=== PATIENT | female | born 1935 | race Caucasian/White ===

== ENCOUNTER 2019-08-29 07:51 | Inpatient (IN) | payer MEDICARE, MEDICAID ==
[~2019-08-29] VITALS: Ht 147.5 cm; Wt 98.3 kg
--- NOTE | 2019-08-29 08:38 | Diagnostic Imaging Report ---
INDICATION: Shortness of breath Frontal chest obtained at 0801 a.m. There is prominent cardiomegaly with prosthetic valve. Single-lead pacemaker is in place. There is central vascular congestion with some right perihilar infiltrate. There is no pneumothorax or pleural fluid. IMPRESSION: Cardiomegaly and central vascular congestion with some right perihilar infiltrate. Prosthetic valve noted. Dictated by: Dictated on workstation # [id number]
--- NOTE | 2019-08-29 08:42 | ED General ---
General Chief Complaint: Respiratory Problems Stated Complaint: SOB Nursing Triage Note: Patient [facility] with c/o shortness of breath and chest fullness. States that the shortness of breath has been increasing for the past couple of days. She recently had a pacemaker and valve replacement done on the . Nursing Sepsis Screen: No Definite Risk Source of Information: Patient, Caregiver Exam Limitations: No Limitations History of Present Illness Date Seen by Provider: Aug 29, 2019 Time Seen by Provider: 08:05 Initial Comments Here with report of cough and shortness of breath that has been increasing over the past several days has had cough for the last 2 weeks. She does complain of fullness of the chest. Had a pacemaker placed about 3 weeks ago. Also had heart valve replaced. Has had history of CHF. Denies fevers but does feel tired. Had diarrhea but that is resolved. Denies dysuria but is not urinating much. Timing/Duration: Getting Worse, Other (2 weeks) Severity: Moderate Associated Systoms: No Chest Pain; Cough; No Diaphoresis, No Fever/Chills, No Nausea/Vomiting; Shortness of Air, Weakness Allergies and Home Medications Allergies Coded Allergies: Sulfa (Sulfonamide Antibiotics) (Verified Allergy, Unknown, 08/29/19) capsaicin (Verified Allergy, Unknown, 08/29/19) ciprofloxacin (Verified Allergy, Unknown, 08/29/19) codeine (Verified Allergy, Unknown, 08/29/19) simvastatin (Verified Allergy, Unknown, 08/29/19) Home Medications Acetaminophen 325 Mg Tablet, 650 MG PO Q4H PRN for PAIN-MILD (1-4), (Reported) Apixaban 5 Mg Tablet, 5 MG PO BID, (Reported) Aspirin 81 Mg Tablet.dr, 81 MG PO DAILY, (Reported) Furosemide 20 Mg Tablet, 20 MG PO BID, (Reported) Hydrocodone Bitartrate 10 Mg Cap.er.12h, 10 MG PO Q12H, (Reported) Hydrocodone/Acetaminophen 1 Each Tablet, 1 TAB PO BID PRN for PAIN-MODERATE (5- 7), (Reported) Latanoprost 2.5 Ml Drops, 1 DROP OU HS, (Reported) Lisinopril 2.5 Mg Tablet, 2.5 MG PO DAILY, (Reported) Metformin HCl 500 Mg Tablet, 500 MG PO BID, (Reported) Omeprazole 40 Mg Capsule.dr, 40 MG PO DAILY, (Reported) Potassium Chloride 10 Meq Tablet.er, 10 MEQ PO BID, (Reported) Pravastatin Sodium 10 Mg Tablet, 10 MG PO DAILY, (Reported) Sennosides/Docusate Sodium 1 Each Tablet, 1 TAB PO BID, (Reported) Sertraline HCl 50 Mg Tablet, 50 MG PO DAILY, (Reported) Patient Home Medication List Home Medication List Reviewed: Yes Review of Systems Review of Systems Constitutional: see HPI EENTM: nose congestion; No throat pain Respiratory: cough, short of breath Cardiovascular: no symptoms reported Gastrointestinal: No abdominal pain, No nausea, No vomiting Musculoskeletal: no symptoms reported Skin: no symptoms reported Psychiatric/Neurological: No Symptoms Reported All Other Systems Reviewed Negative Unless Noted: Yes Past Kxpqytc-Dyhlkw-Eeoqvp Hx Past Med/Social Hx: Reviewed Nursing Past Med/Soc Hx Patient Social History Alcohol Use: Denies Use Recreational Drug Use: No Smoking Status: Never a Smoker 2nd Hand Smoke Exposure: No Recent Foreign Travel: No Contact w/Someone Who Travel: No Recent Infectious Disease Expo: No Recent Hopitalizations: Yes (PACEMAKER PLACED 08/09/19) Physical Abuse: No Sexual Abuse: No Mistreated: No Fear: No Seasonal Allergies Seasonal Allergies: No Past Medical History Surgeries: Yes Pacemaker, Valve Replacement Respiratory: No Cardiac: Yes (CHF) Atrial Fibrillation, High Cholesterol, Hypertension, Valvular Heart Disease Neurological: No Genitourinary: No Gastrointestinal: Yes Gastroesophageal Reflux Endocrine: Yes Diabetes, Non-Insulin dep HEENT: No Cancer: No Psychosocial: No Integumentary: No Blood Disorders: No Family Medical History Reviewed Nursing Family Hx No Pertinent Family Hx Physical Exam-Suspected Sepsis Physical Exam Vital Signs Vital Signs - First Documented 08/29/19 08/29/19 08:00 08:56 Temp 36.7 Pulse 82 Resp 16 B/P (MAP) 130/65 (86) Pulse Ox 95 O2 Delivery Room Air O2 Flow Rate 2.00 FiO2 95 Capillary Refill : Less Than 3 Seconds Blood Pressure Mean: 86 POS Height, Weight, BMI Height: '" Weight: lbs. oz. kg; 43.00 BMI Method: General Appearance: WD/WN, Mild Distress, Obese HEENT: PERRL/EOMI, Pharynx Normal Neck: Non Tender, Supple Respiratory: No Accessory Muscle Use, No Respiratory Distress, Crackles (right greater than left), Decreased Breath Sounds Cardiovascular: Regular Rate, Rhythm, No Murmur Gastrointestinal: Non Tender, Soft Back: Normal Inspection, No CVA Tenderness, No Vertebral Tenderness Extremity: Normal Range of Motion, Pedal Edema (1-2+ bilateral to above the knees.) Neurologic/Psychiatric: Alert, Oriented x3 Skin: normal color, warm/dry Focused Exam Lactate Level 08/29/19 08:45: Lactic Acid Level 1.56 Lactic Acid Level Progress/Results/Core Measures Suspected Sepsis Recent Fever Within 48 Hours: No Infection Criteria Present: Suspected New Infection New/Unexplained Altered Menta: No Sepsis Screen: No Definite Risk SIRS Temperature: Pulse: 82 Respiratory Rate: 16 Laboratory Tests 08/29/19 08:45: White Blood Count 8.8 Blood Pressure 130 /65 Mean: 86 08/29/19 08:45: Lactic Acid Level 1.56 Laboratory Tests 08/29/19 08:45: Creatinine 0.62, INR Comment 1.2, Platelet Count 179, Total Bilirubin 0.6 Results/Orders Lab Results Laboratory Tests Test 08/29/19 08:45 08/29/19 09:45 Range/Units White Blood Count 8.8 4.3-11.0 10^3/uL Red Blood Count 3.95 L 4.35-5.85 10^6/uL Hemoglobin 11.3 L 11.5-16.0 G/DL Hematocrit 36 35-52 % Mean Corpuscular Volume 91 80-99 FL Mean Corpuscular Hemoglobin 29 25-34 PG Mean Corpuscular Hemoglobin Concent 32 32-36 G/DL Red Cell Distribution Width 14.9 H 10.0-14.5 % Platelet Count 179 130-400 10^3/uL Mean Platelet Volume 12.4 H 7.4-10.4 FL Neutrophils (%) (Auto) 70 42-75 % Lymphocytes (%) (Auto) 23 12-44 % Monocytes (%) (Auto) 5 0-12 % Eosinophils (%) (Auto) 1 0-10 % Basophils (%) (Auto) 1 0-10 % Neutrophils # (Auto) 6.1 1.8-7.8 X 10^3 Lymphocytes # (Auto) 2.0 1.0-4.0 X 10^3 Monocytes # (Auto) 0.5 0.0-1.0 X 10^3 Eosinophils # (Auto) 0.1 0.0-0.3 10^3/uL Basophils # (Auto) 0.1 0.0-0.1 10^3/uL Prothrombin Time 15.6 H 12.2-14.7 SEC INR Comment 1.2 0.8-1.4 Activated Partial Thromboplast Time 28 24-35 SEC Sodium Level 140 135-145 MMOL/L Potassium Level 5.2 H 3.6-5.0 MMOL/L Chloride Level 101 98-107 MMOL/L Carbon Dioxide Level 28 21-32 MMOL/L Anion Gap 11 5-14 MMOL/L Blood Urea Nitrogen 14 7-18 MG/DL Creatinine 0.62 0.60-1.30 MG/DL Estimat Glomerular Filtration Rate > 60 BUN/Creatinine Ratio 23 Glucose Level 91 70-105 MG/DL Lactic Acid Level 1.56 0.50-2.00 MMOL/L Calcium Level 9.2 8.5-10.1 MG/DL Corrected Calcium 9.7 8.5-10.1 MG/DL Total Bilirubin 0.6 0.1-1.0 MG/DL Aspartate Amino Transf (AST/SGOT) 23 5-34 U/L Alanine Aminotransferase (ALT/SGPT) 7 0-55 U/L Alkaline Phosphatase 105 40-136 U/L Pro-B-Type Natriuretic Peptide 1568.0 H <75.0 PG/ML Total Protein 6.9 6.4-8.2 GM/DL Albumin 3.4 3.2-4.5 GM/DL Urine Color DARK YELLOW Urine Clarity CLOUDY Urine pH 7.0 5-9 Urine Specific Kirby 1.015 L 1.016-1.022 Urine Protein NEGATIVE NEGATIVE Urine Glucose (UA) NEGATIVE NEGATIVE Urine Ketones NEGATIVE NEGATIVE Urine Nitrite NEGATIVE NEGATIVE Urine Bilirubin NEGATIVE NEGATIVE Urine Urobilinogen 0.2 < = 1.0 MG/DL Urine Leukocyte Esterase TRACE H NEGATIVE Urine RBC (Auto) NEGATIVE NEGATIVE Urine RBC 0-2 /HPF Urine WBC 5-10 H /HPF Urine Squamous Epithelial Cells 5-10 /HPF Urine Crystals NONE /LPF Urine Bacteria LARGE H /HPF Urine Casts NONE /LPF Urine Mucus NEGATIVE /LPF Urine Culture Indicated CULTURE PENDING My Orders Orders - KIKO GARCIA MD Cbc With Automated Diff (08/29/19 08:09) Comprehensive Metabolic Panel (08/29/19 08:09) Blood Culture (08/29/19 08:09) Sputum Culture (08/29/19 08:09) Urinalysis (08/29/19 08:09) Urine Culture (08/29/19 08:09) Protime With Inr (08/29/19 08:09) Partial Thromboplastin Time (08/29/19 08:09) Chest 1 View Ap/Pa Only (08/29/19 08:09) Ed Iv/Invasive Line Start (08/29/19 08:09) Ekg Tracing (08/29/19 08:09) Vital Signs Adult Sepsis Patie Q15M (08/29/19 08:09) O2 (08/29/19 08:09) Remove Rings In Anticipation O (08/29/19 08:09) Lactic Acid Analyzer (08/29/19 08:09) Probnp Fs (08/29/19 08:09) Rutledge Cath (08/29/19 09:52) Furosemide Injection (Lasix Injection) (08/29/19 10:00) Acetaminophen Tablet (Tylenol Tablet) (08/29/19 10:30) Piperacillin Sodium/Tazobactam (Zosyn Vi (08/29/19 10:45) Medications Given in ED Current Medications Medications Dose Ordered Sig/Kathy Route Start Time Stop Time Status Last Admin Dose Admin Acetaminophen 1,000 mg ONCE ONCE PO 08/29/19 10:30 08/29/19 10:31 DC 08/29/19 10:23 1,000 MG Piperacillin Sod/ Tazobactam Sod 4.5 gm/Sodium Chloride 100 ml @ 200 mls/hr ONCE ONCE IV 08/29/19 10:45 08/29/19 11:14 DC 08/29/19 11:22 200 MLS/HR Vital Signs/I&O 08/29/19 08/29/19 08/29/19 08/29/19 08:00 08:56 11:42 12:30 Temp 36.7 36.7 Pulse 82 80 86 Resp 16 16 22 B/P (MAP) 130/65 (86) 112/45 (86) 120/75 (90) Pulse Ox 95 95 94 O2 Delivery Room Air Nasal Cannula O2 Flow Rate 2.00 2.00 2.00 FiO2 95 08/29/19 08/29/19 08/29/19 08/29/19 12:30 12:31 13:57 15:32 Temp 36.7 Pulse 86 82 Pulse Ox 95 97 O2 Delivery Nasal Cannula Nasal Cannula O2 Flow Rate 2.00 2.00 FiO2 28 08/29/19 08/29/19 08/29/19 15:46 16:03 17:13 Temp 36.7 Pulse 80 Pulse Ox 94 O2 Delivery Nasal Cannula O2 Flow Rate 2.00 Capillary Refill : Less Than 3 Seconds Blood Pressure Mean: 86 POS Progress Note : Progress Note Seen and evaluated. IV, labs, EKG and chest x-ray ordered. Blood cultures and lactic acid ordered. Patient is difficult IV stick but we are able to finally get 24-gauge IV. Monitor patient. 1020: Findings of heart failure noted. Patient did have Rutledge catheter placed and UA has resulted. That is also positive for urinary tract infection. There is question of right perihilar infiltrate. I did discuss the findings with Dr. Vo, on-call for [facility]. She recommends initiation of Zosyn due to the recent hospitalization as well as intermediate patient. Zosyn 4.5 g IV ordered. She has asked for consult with cardiology and pulmonology. 1025: I did discuss case with Dr. Simon. He accepts patient in consult and agrees with Lasix 40 mg IV now and twice a day. 1033: I did discuss the case with Dr. Back. He accepts patient in consult. Patient to be admitted to cardiac step down. ECG Initial ECG Impression Date: Aug 29, 2019 Initial ECG Impression Time: 08:07 Initial ECG Rate: 81 Comment Ventricular paced rhythm with left axis deviation. No evidence of ST elevation [place]. No previous available for comparison. Interpreted by me. Diagnostic Imaging Diagonstic Imaging: Xray Plain Films/CT/US/NM/MRI: chest Comments [facility]. POS [place], [place] POS NAME: RITADIDI MED REC#: [id number] PT STATUS: REG ER : 1935 PHYSICIAN: KIKO GARCIA MD ADMIT DATE: 08/29/19/ER FS Draft POSDate of Exam:08/29/19 CHEST 1 VIEW AP/PA ONLY INDICATION: Shortness of breath Frontal chest obtained at 0801 a.m. There is prominent cardiomegaly with prosthetic valve. Single-lead pacemaker is in place. There is central vascular congestion with some right perihilar infiltrate. There is no pneumothorax or pleural fluid. IMPRESSION: Cardiomegaly and central vascular congestion with some right perihilar infiltrate. Prosthetic valve noted. Dictated on workstation # [id number] Dict: 08/29/1932 Trans: 08/29/19 0838 COUNT INCLUDES THE [facility] [id number] Interpreted by: JEAN PIERRE GODOY MD Electronically signed by: Departure Communication (Admissions) Time/Spoke to Admitting Phy: 10:20 Time/Spoke to Consulting Phy: 10:25 Impression Primary Impression: Acute heart failure Qualified Codes: I50.9 - Heart failure, unspecified Additional Impressions: Urinary tract infection Qualified Codes: N30.00 - Acute cystitis without hematuria Pneumonia involving right lung Qualified Codes: J18.9 - Pneumonia, unspecified organism Disposition: ADMITTED INPATIENT Condition: Stable Admissions Decision to Admit Reason: Admit from ER (General) Decision to Admit/Date: Aug 29, 2019 Time/Decision to Admit Time: 10:20 KIKO GARCIA MD Aug 29, 2019 08:42 POS
[2019-08-29 09:41] LABS: INR 1.2 (0.8-1.4); PROTHROMBIN TIME PATIENT 15.6 SEC (12.2-14.7)
[2019-08-29 09:42] LABS: BASOPHILS % (AUTO) 1 % (0-10); EOSINOPHILS % (AUTO) 1 % (0-10); HEMATOCRIT 36 % (35-52); HEMOGLOBIN 11.3 G/DL (11.5-16.0); LYMPHOCYTES % (AUTO) 23 % (12-44); MEAN CORPUSCULAR HEMOGLOBIN 29 PG (25-34); MEAN CORPUSCULAR HGB CONC 32 G/DL (32-36); MEAN CORPUSCULAR VOLUME 91 FL (80-99); MEAN PLATELET VOLUME 12.4 FL (7.4-10.4); MONOCYTES % (AUTO) 5 % (0-12); NEUTROPHILS % (AUTO) 70 % (42-75); PLATELET COUNT 179 10^3/uL (130-400); RED CELL DISTRIBUTION WIDTH 14.9 % (10.0-14.5); WHITE BLOOD COUNT 8.8 10^3/uL (4.3-11.0)
[2019-08-29 09:43] LABS: BASOPHILS # (AUTO) 0.1 10^3/uL (0.0-0.1); EOSINOPHILS # (AUTO) 0.1 10^3/uL (0.0-0.3); MONOCYTES # (AUTO) 0.5 X 10^3 (0.0-1.0); NEUTROPHILS # (AUTO) 6.1 X 10^3 (1.8-7.8)
[2019-08-29 09:49] LABS: CARBON DIOXIDE 28 MMOL/L (21-32); CHLORIDE 101 MMOL/L (98-107); POTASSIUM 5.2 MMOL/L (3.6-5.0); SODIUM 140 MMOL/L (135-145)
[2019-08-29 09:50] LABS: ALANINE AMINOTRANSFERASE 7 U/L (0-55); ALBUMIN 3.4 GM/DL (3.2-4.5); ALKALINE PHOSPHATASE 105 U/L (40-136); BILIRUBIN,TOTAL 0.6 MG/DL (0.1-1.0); BUN/CREATININE RATIO 23; CALCIUM 9.2 MG/DL (8.5-10.1); CREATININE SERUM 0.62 MG/DL (0.60-1.30); GFR ESTIMATED > 60; GLUCOSE 91 MG/DL (70-105); TOTAL PROTEIN 6.9 GM/DL (6.4-8.2)
[2019-08-29] MEDS ORDERED: FUROSEMIDE 40 MG/4 ML INJ (LASIX) IV STA (10:00)
[2019-08-29 10:12] LABS: CLARITY,URINE CLOUDY; COLOR,URINE DARK YELLOW; GLUCOSE, URINE (UA) NEGATIVE (NEGATIVE); PROTEIN,URINE NEGATIVE (NEGATIVE)
[2019-08-29 10:13] LABS: BACTERIA,URINE LARGE /HPF; BILIRUBIN,URINE NEGATIVE (NEGATIVE); KETONES,URINE NEGATIVE (NEGATIVE); LEUKOCYTE ESTERASE ,URINE TRACE (NEGATIVE); NITRITE,URINE NEGATIVE (NEGATIVE); RBC,URINE 0-2 /HPF
[2019-08-29] MEDS ORDERED: ACETAMINOPHEN 500 MG TAB (TYLENOL) PO ONE (10:30)
[2019-08-29] MEDS ORDERED: PIPERACILLIN SODIUM/TAZOBACTAM 4.5 GM in NS (IVPB) 100 ML IV ONE (10:45)
[2019-08-29] MEDS ORDERED: PIPERACILLIN/TAZO 4.5 GM VIAL (ZOSYN) IV ONE (11:07)
[2019-08-29] MEDS ORDERED: NS (IVPB) 100 ML ONE (11:08)
[2019-08-29 12:30] VITALS: BP 120/75
--- NOTE | 2019-08-29 12:30 | NUR ---
PT ARRIVED VIA EMS COT AND TRANSFERRED TO HOSPITAL BED. BSC APPLIED. PT DENIES COMPLAINTS. PT ABLE TO ANSWER ALL QUESTIONS APPROPRIATELY. BED IN LOW POSITION AND CALL LIGHT WITHIN REACH.
[2019-08-29] MEDS ORDERED: CATHETER FLUSH 10 ML SYR IV PRN (12:45)
[2019-08-29] MEDS ORDERED: FLU QUADRIvalent (5+ YOA) 2019-2020 (AFLURIA) 0.5 ML IM ONE (13:15)
--- NOTE | 2019-08-29 13:17 | Diagnostic Imaging Report ---
INDICATION: CHF. EXAMINATION: Frontal chest obtained at 01:08 p.m. and compared to same day at 08:01 a.m. FINDINGS: There is cardiomegaly. No change in prosthetic valve or pacemaker device. There is central vascular congestion. There appears to be some infiltrate in the right perihilar region. There is no pneumothorax or pleural fluid. IMPRESSION: Cardiomegaly with central vascular congestion with some infiltrate in right perihilar region. No pneumothorax or pleural fluid. No significant change compared to earlier today. Dictated by: Dictated on workstation # [id number]
[2019-08-29 13:57] VITALS: BP 130/65
--- NOTE | 2019-08-29 14:21 | Consultation-Cardiology ---
HPI-Cardiology Cardiology Consultation: Date of Consultation 08/29/19 Time Seen by a Provider: 13:45 Date of Admission 08-29-19 Attending Physician Allison Gallardo DO Admitting Physician Carlos Smith MD Consulting Physician Danielle Simon MD HPI: Chief Complaint: Dyspnea Ms. Salinas is an 83 year old female admitted to ICU 12 from [facility] ED. She currently resides at [facility]. She states she underwent pacemaker placement and aortic valve replacement on Aug 09, [address] Fitzgerald at [facility]. She reports she was discharge to [facility] at [facility] and has had increasing SOB, lose cough and tightness in her chest. She denies any c/o fever. She reports she has had chills. She reports chronic bilat LE swelling which has been worse. She currently denies any chest pain. She feels her breathing is better, but still has a lose non-productive cough. She reports nausea. She denies any vomiting or diarrhea. Review of Systems-Cardiology Review of Systems Constitutional: chills; No fever; malaise Eyes: No vision change Ears/Nose/Throat: No epistaxis, No recent hearing loss Respiratory: As described under HPI Cardiovascular: As described under HPI Gastrointestinal: No constipation, No diarrhea; nausea; No vomiting Genitourinary: No dysuria, No hematuria Musculoskeletal: no symptoms reported Skin: No rash on exposed areas, No ulcerations on exposed areas Psychiatric/Neurological: No anxiety, No depression, No seizure, No focal weakness, No syncope Hematologic: No bleeding abnormalities All Other Systems Reviewed Negative Unless Noted: Yes TNO-Qmbpxp-Cqmsov Hx Patient Social History Alcohol Use: Denies Use Recreational Drug Use: No Smoking Status: Never a Smoker 2nd Hand Smoke Exposure: No Recent Foreign Travel: No Recent Infectious Disease Expo: No Immunizations Up To Date Date of Pneumonia Vaccine: Aug 29, 2016 Past Medical History PMH As described under Assessment. Family Medical History Family Medical History: She reports her father passed with CHF. She states her mother had a CVA. Allergies and Home Medications Allergies Coded Allergies: Sulfa (Sulfonamide Antibiotics) (Verified Allergy, Unknown, 08/29/19) capsaicin (Verified Allergy, Unknown, 08/29/19) ciprofloxacin (Verified Allergy, Unknown, 08/29/19) codeine (Verified Allergy, Unknown, 08/29/19) simvastatin (Verified Allergy, Unknown, 08/29/19) Home Medications Acetaminophen 325 Mg Tablet, 650 MG PO Q4H PRN for PAIN-MILD (1-4), (Reported) Apixaban 5 Mg Tablet, 5 MG PO BID, (Reported) Aspirin 81 Mg Tablet.dr, 81 MG PO DAILY, (Reported) Furosemide 20 Mg Tablet, 20 MG PO BID, (Reported) Hydrocodone Bitartrate 10 Mg Cap.er.12h, 10 MG PO Q12H, (Reported) Hydrocodone/Acetaminophen 1 Each Tablet, 1 TAB PO BID PRN for PAIN-MODERATE (5- 7), (Reported) Latanoprost 2.5 Ml Drops, 1 DROP OU HS, (Reported) Lisinopril 2.5 Mg Tablet, 2.5 MG PO DAILY, (Reported) Metformin HCl 500 Mg Tablet, 500 MG PO BID, (Reported) Omeprazole 40 Mg Capsule.dr, 40 MG PO DAILY, (Reported) Potassium Chloride 10 Meq Tablet.er, 10 MEQ PO BID, (Reported) Pravastatin Sodium 10 Mg Tablet, 10 MG PO DAILY, (Reported) Sennosides/Docusate Sodium 1 Each Tablet, 1 TAB PO BID, (Reported) Sertraline HCl 50 Mg Tablet, 50 MG PO DAILY, (Reported) Physical Exam-Cardiology Physical Exam Vital Signs/I&O 08/29/19 08/29/19 08/30/19 08/30/19 20:25 21:00 00:00 00:00 Temp 36.8 36.6 Pulse 80 B/P (MAP) 115/60 (78) Pulse Ox 97 98 O2 Delivery Nasal Cannula Nasal Cannula O2 Flow Rate 2.00 2.00 FiO2 95 08/30/19 08/30/19 01:00 04:00 Pulse 81 80 B/P (MAP) 133/72 (92) Pulse Ox 97 O2 Delivery Nasal Cannula O2 Flow Rate 2.00 08/30/19 00:00 Intake Total 1550 ml Output Total 2950 ml Balance -1400 ml Capillary Refill : Less Than 3 Seconds Constitutional: AAO x 3, well-developed, well-nourished HEENT: PERRL, hearing is well preserved, oral hygience is good Neck: No carotid bruit; carotid pulses are 2 + bilaterally Respiratory: No accessory muscle use, No respiratory distress; chest expansion is symmetric, chest is bilaterally symmetric, crackles (coarse breath sounds) Cardiovascular: irregularly irregular; No JVD; S1 and S2 Gastrointestinal: No tender; soft, round, audible bowel sounds Rectal: deferred Extremities: other (mild to mod bilat LE swelling) Neurologic/Psychiatric: grossly intact (moves extremities) Skin: normal color, warm/dry, other (L ACW incision with edges approx; no redness or drainage noted) Data Review Labs Laboratory Tests 08/29/19 08:45: White Blood Count 8.8, Red Blood Count 3.95L, Hemoglobin 11.3L, Hematocrit 36, Mean Corpuscular Volume 91, Mean Corpuscular Hemoglobin 29, Mean Corpuscular Hemoglobin Concent 32, Red Cell Distribution Width 14.9H, Platelet Count 179, Mean Platelet Volume 12.4H, Neutrophils (%) (Auto) 70, Lymphocytes (%) (Auto) 23, Monocytes (%) (Auto) 5, Eosinophils (%) (Auto) 1, Basophils (%) (Auto) 1, Neutrophils # (Auto) 6.1, Lymphocytes # (Auto) 2.0, Monocytes # (Auto) 0.5, Eosinophils # (Auto) 0.1, Basophils # (Auto) 0.1, Prothrombin Time 15.6H, INR Comment 1.2, Activated Partial Thromboplast Time 28, Sodium Level 140, Potassium Level 5.2H, Chloride Level 101, Carbon Dioxide Level 28, Anion Gap 11, Blood Urea Nitrogen 14, Creatinine 0.62, Estimat Glomerular Filtration Rate > 60, BUN/Creatinine Ratio 23, Glucose Level 91, Lactic Acid Level 1.56, Calcium Level 9.2, Corrected Calcium 9.7, Total Bilirubin 0.6, Aspartate Amino Transf (AST/SGOT) 23, Alanine Aminotransferase (ALT/SGPT) 7, Alkaline Phosphatase 105, Pro-B-Type Natriuretic Peptide 1568.0H, Total Protein 6.9, Albumin 3.4 08/29/19 09:45: Urine Color DARK YELLOW, Urine Clarity CLOUDY, Urine pH 7.0, Urine Specific [place] 1.015L, Urine Protein NEGATIVE, Urine Glucose (UA) NEGATIVE, Urine Ketones NEGATIVE, Urine Nitrite NEGATIVE, Urine Bilirubin NEGATIVE, Urine Urobilinogen 0.2, Urine Leukocyte Esterase TRACEH, Urine RBC (Auto) NEGATIVE, Urine RBC 0-2, Urine WBC 5-10H, Urine Squamous Epithelial Cells 5-10, Urine Crystals NONE, Urine Bacteria LARGEH, Urine Casts NONE, Urine Mucus NEGATIVE, Urine Culture Indicated CULTURE PENDING 08/30/19 03:50: White Blood Count 7.7, Red Blood Count 3.78L, Hemoglobin 10.6L, Hematocrit 34L, Mean Corpuscular Volume 91, Mean Corpuscular Hemoglobin 28, Mean Corpuscular Hemoglobin Concent 31L, Red Cell Distribution Width 14.9H, Platelet Count 170, Mean Platelet Volume 12.3H, Neutrophils (%) (Auto) 68, Lymphocytes (%) (Auto) 23 , Monocytes (%) (Auto) 8, Eosinophils (%) (Auto) 1, Basophils (%) (Auto) 0, Neutrophils # (Auto) 5.2, Lymphocytes # (Auto) 1.8, Monocytes # (Auto) 0.6, Eosinophils # (Auto) 0.1, Basophils # (Auto) 0.0, Sodium Level 142, Potassium Level 3.6, Chloride Level 101, Carbon Dioxide Level 28, Anion Gap 13, Blood Urea Nitrogen 13, Creatinine 0.76, Estimat Glomerular Filtration Rate > 60, BU N/Creatinine Ratio 17, Glucose Level 105, Calcium Level 8.7, Corrected Calcium 9.3, Total Bilirubin 0.7, Aspartate Amino Transf (AST/SGOT) 10, Alanine Aminotransferase (ALT/SGPT) < 6, Alkaline Phosphatase 96, Total Protein 6.1L, Albumin 3.2, Magnesium Level 1.9, Thyroid Stimulating Hormone (TSH) 0.06L Radiology NAME: DIDI SALINAS [facility] REC#: [id number] PT STATUS: ADM IN : 1935 PHYSICIAN: ALLISON GALLARDO DO ADMIT DATE: 08/29/19/ICU Draft Date of Exam:08/29/19 CHEST 1 VIEW, AP/PA ONLY INDICATION: CHF. EXAMINATION: Frontal chest obtained at 01:08 p.m. and compared to same day at 08:01 a.m. FINDINGS: There is cardiomegaly. No change in prosthetic valve or pacemaker device. There is central vascular congestion. There appears to be some infiltrate in the right perihilar region. There is no pneumothorax or pleural fluid. IMPRESSION: Cardiomegaly with central vascular congestion with some infiltrate in right perihilar region. No pneumothorax or pleural fluid. No significant change compared to earlier today. Dictated on workstation # [id number] Dict: 08/29/19 1313 Trans: 08/29/19 1317 [facility] [id number] Interpreted by: JEAN PIERRE GODOY MD Electronically signed by: A/P-Cardiology Assessment/Admission Diagnosis Progressive dyspnea Probable pneumonia Acute on chronic CHF H/O A-fib OAC with Eliquis H/O AoVR Aug 09, 2019 at [facility] [address] Fitzgerald H/O PPM implant on Aug 09, 2019 at [facility] [address] Fitzgerald H/O colon cancer with colectomy - details unknown H/O frequent UTI's Discussion and Recomendations Multi-factorial dyspnea r/t probable pneumonia and acute on chronic CHF Echocardiogram to eval structure and function Request records from [facility] Continue home medications including Eliquis d/t known h/o chronic a-fib Monitor lab closely Further recs will be based on her hospital course Treat with IV diuretics Treatment of pneumonia per medical services We would like to thank medical services for this consult Clinical Quality Measures DVT/VTE Risk/Contraindication: Risk Factor Score Per Nursin RFS Level Per Nursing on Admit: 4+=Very High WILBERT BAINS Aug 29, 2019 14:21 POS
[2019-08-29] MEDS ORDERED: RT-ALBUTEROL/IPRATROPIUM 3 ML (DUONEB) VIAL ONE (15:24)
--- NOTE | 2019-08-29 15:25 | Pulmonary Consultation ---
History of Present Illness History of Present Illness Date Seen by Provider: Aug 29, 2019 Time Seen by Provider: 07:25 Date of Admission History of Present Illness 83yo presented to ED from [facility] secondary to worsening respiratory distress and fever. Pt has recently been treated as out pt for UTI. She has bilateral infiltrates on CXR upon admission. 3 wks ago she had a pacemaker placed. Pt has had a strong productive cough of yellow sputum production. I am consulted for pulmonary management. Allergies and Home Medications Allergies Coded Allergies: Sulfa (Sulfonamide Antibiotics) (Verified Allergy, Unknown, 08/29/19) capsaicin (Verified Allergy, Unknown, 08/29/19) ciprofloxacin (Verified Allergy, Unknown, 08/29/19) codeine (Verified Allergy, Unknown, 08/29/19) simvastatin (Verified Allergy, Unknown, 08/29/19) Home Medications Acetaminophen 325 Mg Tablet, 650 MG PO Q4H PRN for PAIN-MILD (1-4), (Reported) Apixaban 5 Mg Tablet, 5 MG PO BID, (Reported) Aspirin 81 Mg Tablet.dr, 81 MG PO DAILY, (Reported) Furosemide 20 Mg Tablet, 20 MG PO BID, (Reported) Hydrocodone Bitartrate 10 Mg Cap.er.12h, 10 MG PO Q12H, (Reported) Hydrocodone/Acetaminophen 1 Each Tablet, 1 TAB PO BID PRN for PAIN-MODERATE (5- 7), (Reported) Latanoprost 2.5 Ml Drops, 1 DROP OU HS, (Reported) Lisinopril 2.5 Mg Tablet, 2.5 MG PO DAILY, (Reported) Metformin HCl 500 Mg Tablet, 500 MG PO BID, (Reported) Omeprazole 40 Mg Capsule.dr, 40 MG PO DAILY, (Reported) Potassium Chloride 10 Meq Tablet.er, 10 MEQ PO BID, (Reported) Pravastatin Sodium 10 Mg Tablet, 10 MG PO DAILY, (Reported) Sennosides/Docusate Sodium 1 Each Tablet, 1 TAB PO BID, (Reported) Sertraline HCl 50 Mg Tablet, 50 MG PO DAILY, (Reported) Past Plqibgt-Krgmon-Dwdvny Hx Past Med/Social Hx: Reviewed Nursing Past Med/Soc Hx Patient Social History Alcohol Use: Denies Use Recreational Drug Use: No Smoking Status: Never a Smoker 2nd Hand Smoke Exposure: No Recent Foreign Travel: No Contact w/Someone Who Travel: No Recent Infectious Disease Expo: No Recent Hopitalizations: Yes (PACEMAKER PLACED 08/09/19) Physical Abuse: No Sexual Abuse: No Mistreated: No Fear: No Immunizations Up To Date Date of Pneumonia Vaccine: Aug 29, 2016 Seasonal Allergies Seasonal Allergies: No Past Medical History Surgeries: Yes Appendectomy, Bowel Surgery, Cardiac, Pacemaker, Valve Replacement Respiratory: No Cardiac: Yes (CHF) Atrial Fibrillation, High Cholesterol, Hypertension, Valvular Heart Disease Neurological: No Genitourinary: No Gastrointestinal: Yes Gastroesophageal Reflux Endocrine: Yes Diabetes, Non-Insulin dep HEENT: No Cancer: Yes Colon Did You Recieve Any Treatments: Yes What Type of Treatment Did You: Surgical Intervention Psychosocial: No Integumentary: No Blood Disorders: No Family Medical History Reviewed Nursing Family Hx No Pertinent Family Hx Review of Systems Time Seen by Provider: 07:37 Constitutional: Fever, Chills, Sweats, Weakness, Malaise, Other Eyes: No: Pain, Vision change, Conjunctivae inflammation, Eyelid inflammation, Other, Redness ENT: Nose congestion; No: Ear pain, Ear discharge, Nose pain, Nose discharge, Mouth pain, Mouth swelling, Throat pain, Throat swelling, Other Respiratory: Cough, Shortness of breath, SOB with excertion, Wheezing, Sputum; No: Hemoptysis, Pleuritic Pain Cardiovascular: Paroxysmal Noc. Dyspnea, Edema; No: Chest Pain, Palpitations, Lt Headedness Gastrointestinal: No: Nausea, Vomiting, Abdominal Pain, Diarrhea, Constipation, Melena, Hematochezia, Other Sepsis Event Evaluation Height, Weight, BMI Height: '" Weight: lbs. oz. kg; 45.18 BMI Method: Exam Exam Vital Signs Date Time Temp Pulse Resp B/P (MAP) Pulse Ox O2 Delivery O2 Flow Rate FiO2 08/29/19 13:57 36.7 82 95 28 08/29/19 12:31 86 08/29/19 12:30 Nasal Cannula 2.00 08/29/19 12:30 86 22 120/75 (90) 94 Nasal Cannula 2.00 08/29/19 11:42 36.7 80 16 112/45 (86) 95 2.00 08/29/19 08:56 2.00 95 08/29/19 08:00 36.7 82 16 130/65 (86) 95 Room Air Height & Weight Height: '" Weight: lbs. oz. kg; 45.18 BMI Method: General Appearance: WD/WN, Mild Distress, Obese HEENT: PERRL/EOMI, Pharynx Normal Neck: Non Tender, Supple Respiratory: No Accessory Muscle Use, No Respiratory Distress, Crackles (right greater than left), Decreased Breath Sounds Cardiovascular: Regular Rate, Rhythm, No Murmur Capillary Refill: Less Than 3 Seconds Gastrointestinal: normal bowel sounds, non tender, soft, no organomegaly, no pulsatile mass Extremity: Normal Range of Motion, Pedal Edema (1-2+ bilateral to above the knees.) Neurologic/Psychiatric: Alert, Oriented x3 Skin: Normal Color, Warm/Dry Lymphatic: No Adenopathy Results Lab Laboratory Tests 08/29/19 08:45 Assessment/Plan Assessment/Plan Acute worsening SOB r/o PNA -Continue Lasix -Yates cultures -Currently on Zosyn UTI Pulmonary edema -Continue Lasix Anemia -Monitor S/p recent pacemaker placement Hyperkalemia - JOSE G HANEY DO Aug 29, 2019 15:25 POS
[2019-08-29] MEDS ORDERED: OMEP40CA27 PO (15:26)
[2019-08-29] MEDS ORDERED: PRAV10TA PO (15:26)
[2019-08-29] MEDS ORDERED: APIX5TAB PO (15:26)
[2019-08-29] MEDS ORDERED: METF-397 PO (15:26)
[2019-08-29] MEDS ORDERED: SENN-109 PO (15:26)
[2019-08-29] MEDS ORDERED: LISI2.5T PO (15:26)
[2019-08-29] MEDS ORDERED: LATA2.5D5 OU (15:26)
[2019-08-29] MEDS ORDERED: ACET325T38 PO (15:26)
[2019-08-29] MEDS ORDERED: ASPI-983 PO (15:26)
[2019-08-29] MEDS ORDERED: FURO20TA4 PO (15:26)
[2019-08-29] MEDS ORDERED: HYDR-3820 PO (15:26)
[2019-08-29] MEDS ORDERED: POTA10TA10 PO (15:26)
[2019-08-29] MEDS ORDERED: HYDR10CA3 PO (15:28)
[2019-08-29] MEDS ORDERED: SERT50TA9 PO (15:28)
--- NOTE | 2019-08-29 15:29 | NUR ---
UPDATED MED REC WITH MEDICATION REVIEW REPORT FROM [employer]MID.
[2019-08-29] MEDS: RT-ALBUTEROL/IPRATROPIUM 3 ML (DUONEB) VIAL INH SCH (15:32)
--- NOTE | 2019-08-29 15:48 | NUR ---
Pt is Yaz[employer]ism and attended a [employer] [facility] when she was able to drive and health permitted. She welcomed prayer.
[2019-08-29 16:00] VITALS: BP 117/59
[2019-08-29] MEDS ORDERED: RT-ALBUTEROL/IPRATROPIUM 3 ML (DUONEB) VIAL INH PRN (17:00)
--- NOTE | 2019-08-29 17:52 | Consultation-Cardiology ---
HPI-Cardiology Cardiology Consultation: Date of Consultation 08/29/19 Time Seen by a Provider: 16:50 Date of Admission Attending Physician Allison Vo DO Admitting Physician Carlos Smith MD Consulting Physician WAN YBARRA MD, FACP, FACC HPI: Chief Complaint: CC: Shortness of breath HPI Ms. Johnston is an 83 year old female admitted to ICU 12 from [facility] ED. She currently resides at [facility]. She states she underwent pacemaker placement and aortic valve replacement on Aug 09, [address] Fitzgerald at [facility]. She reports she was discharge to [facility] at [facility] and has had increasing SOB, lose cough and tightness in her chest. She denies any c/o fever. She reports she has had chills. She reports chronic bilat LE swelling which has been worse. She currently denies any chest pain. She feels her breathing is better, but still has a lose non-productive cough. She reports nausea. She denies any vomiting or diarrhea. Review of Systems-Cardiology Review of Systems Constitutional: chills; No fever; malaise Eyes: No vision change Ears/Nose/Throat: No epistaxis, No recent hearing loss Respiratory: As described under HPI Cardiovascular: As described under HPI Gastrointestinal: No constipation, No diarrhea; nausea; No vomiting Genitourinary: No dysuria, No hematuria Musculoskeletal: no symptoms reported Skin: No rash on exposed areas, No ulcerations on exposed areas Psychiatric/Neurological: No anxiety, No depression, No seizure, No focal weakness, No syncope Hematologic: No bleeding abnormalities All Other Systems Reviewed Negative Unless Noted: Yes EDO-Jjwtrv-Nmynxa Hx Patient Social History Alcohol Use: Denies Use Recreational Drug Use: No Smoking Status: Never a Smoker 2nd Hand Smoke Exposure: No Recent Foreign Travel: No Recent Infectious Disease Expo: No Immunizations Up To Date Date of Pneumonia Vaccine: Aug 29, 2016 Past Medical History PMH As described under Assessment. Family Medical History Family Medical History: She reports her father passed with CHF. She states her mother had a CVA. Allergies and Home Medications Allergies Coded Allergies: Sulfa (Sulfonamide Antibiotics) (Verified Allergy, Unknown, 08/29/19) capsaicin (Verified Allergy, Unknown, 08/29/19) ciprofloxacin (Verified Allergy, Unknown, 08/29/19) codeine (Verified Allergy, Unknown, 08/29/19) simvastatin (Verified Allergy, Unknown, 08/29/19) Home Medications Acetaminophen 325 Mg Tablet, 650 MG PO Q4H PRN for PAIN-MILD (1-4), (Reported) Apixaban 5 Mg Tablet, 5 MG PO BID, (Reported) Aspirin 81 Mg Tablet.dr, 81 MG PO DAILY, (Reported) Furosemide 20 Mg Tablet, 20 MG PO BID, (Reported) Hydrocodone Bitartrate 10 Mg Cap.er.12h, 10 MG PO Q12H, (Reported) Hydrocodone/Acetaminophen 1 Each Tablet, 1 TAB PO BID PRN for PAIN-MODERATE (5- 7), (Reported) Latanoprost 2.5 Ml Drops, 1 DROP OU HS, (Reported) Lisinopril 2.5 Mg Tablet, 2.5 MG PO DAILY, (Reported) Metformin HCl 500 Mg Tablet, 500 MG PO BID, (Reported) Omeprazole 40 Mg Capsule.dr, 40 MG PO DAILY, (Reported) Potassium Chloride 10 Meq Tablet.er, 10 MEQ PO BID, (Reported) Pravastatin Sodium 10 Mg Tablet, 10 MG PO DAILY, (Reported) Sennosides/Docusate Sodium 1 Each Tablet, 1 TAB PO BID, (Reported) Sertraline HCl 50 Mg Tablet, 50 MG PO DAILY, (Reported) Patient Home Medication List Home Medication List Reviewed: Yes Physical Exam-Cardiology Physical Exam Vital Signs/I&O 08/29/19 08/29/19 08/29/19 08/29/19 08:00 08:56 11:42 12:30 Temp 36.7 36.7 Pulse 82 80 86 Resp 16 16 22 B/P (MAP) 130/65 (86) 112/45 (86) 120/75 (90) Pulse Ox 95 95 94 O2 Delivery Room Air Nasal Cannula O2 Flow Rate 2.00 2.00 2.00 FiO2 95 08/29/19 08/29/19 08/29/19 08/29/19 12:30 12:31 13:57 15:32 Temp 36.7 Pulse 86 82 Pulse Ox 95 97 O2 Delivery Nasal Cannula Nasal Cannula O2 Flow Rate 2.00 2.00 FiO2 28 08/29/19 08/29/19 08/29/19 15:46 16:03 17:13 Temp 36.7 Pulse 80 Pulse Ox 94 O2 Delivery Nasal Cannula O2 Flow Rate 2.00 Capillary Refill : Less Than 3 Seconds Constitutional: AAO x 3, well-developed, well-nourished HEENT: PERRL, hearing is well preserved, oral hygience is good Neck: No carotid bruit; carotid pulses are 2 + bilaterally Respiratory: No accessory muscle use, No respiratory distress; chest expansion is symmetric, chest is bilaterally symmetric, crackles (coarse breath sounds) Cardiovascular: irregularly irregular; No JVD; S1 and S2 Gastrointestinal: No tender; soft, round, audible bowel sounds Rectal: deferred Extremities: other (mild to mod bilat LE swelling) Neurologic/Psychiatric: grossly intact (moves extremities) Skin: normal color, warm/dry, other (L ACW incision with edges approx; no redness or drainage noted) Data Review Labs Laboratory Tests 08/29/19 08:45: White Blood Count 8.8, Red Blood Count 3.95L, Hemoglobin 11.3L, Hematocrit 36, Mean Corpuscular Volume 91, Mean Corpuscular Hemoglobin 29, Mean Corpuscular Hemoglobin Concent 32, Red Cell Distribution Width 14.9H, Platelet Count 179, Mean Platelet Volume 12.4H, Neutrophils (%) (Auto) 70, Lymphocytes (%) (Auto) 23, Monocytes (%) (Auto) 5, Eosinophils (%) (Auto) 1, Basophils (%) (Auto) 1, Neutrophils # (Auto) 6.1, Lymphocytes # (Auto) 2.0, Monocytes # (Auto) 0.5, Eosinophils # (Auto) 0.1, Basophils # (Auto) 0.1, Prothrombin Time 15.6H, INR Comment 1.2, Activated Partial Thromboplast Time 28, Sodium Level 140, Potassium Level 5.2H, Chloride Level 101, Carbon Dioxide Level 28, Anion Gap 11, Blood Urea Nitrogen 14, Creatinine 0.62, Estimat Glomerular Filtration Rate > 60, BUN/Creatinine Ratio 23, Glucose Level 91, Lactic Acid Level 1.56, Calcium Level 9.2, Corrected Calcium 9.7, Total Bilirubin 0.6, Aspartate Amino Transf (AST/SGOT) 23, Alanine Aminotransferase (ALT/SGPT) 7, Alkaline Phosphatase 105, Pro-B-Type Natriuretic Peptide 1568.0H, Total Protein 6.9, Albumin 3.4 08/29/19 09:45: Urine Color DARK YELLOW, Urine Clarity CLOUDY, Urine pH 7.0, Urine Specific [place] 1.015L, Urine Protein NEGATIVE, Urine Glucose (UA) NEGATIVE, Urine Ketones NEGATIVE, Urine Nitrite NEGATIVE, Urine Bilirubin NEGATIVE, Urine Urobilinogen 0.2, Urine Leukocyte Esterase TRACEH, Urine RBC (Auto) NEGATIVE, Urine RBC 0-2, Urine WBC 5-10H, Urine Squamous Epithelial Cells 5-10, Urine Crystals NONE, Urine Bacteria LARGEH, Urine Casts NONE, Urine Mucus NEGATIVE, Urine Culture Indicated CULTURE PENDING A/P-Cardiology Assessment/Admission Diagnosis Progressive shortness of breath, multifactorial (see below) Probable pneumonia Acute on chronic CHF H/O A-fib OAC with Eliquis 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 Fitzgerald H/O PPM implant on Aug 09, 2019 at [facility] by Dr. Fitzgerald H/O colon cancer with colectomy - details unknown H/O frequent UTI's Discussion and Recomendations Echocardiogram to eval structure and function Request records from [facility] Continue home medications including Eliquis d/t known h/o chronic a-fib Monitor lab closely Further recs will be based on her hospital course Treat with IV diuretics Treatment of pneumonia per medical services We would like to thank Medical Services for this consult Clinical Quality Measures DVT/VTE Risk/Contraindication: Risk Factor Score Per Nursin RFS Level Per Nursing on Admit: 4+=Very High WAN YBARRA MD FACP FAC CCDS Aug 29, 2019 17:52 POS
[2019-08-29] MEDS: FUROSEMIDE 40 MG/4 ML INJ (LASIX) IV SCH (18:16)
[2019-08-29] MEDS: PIPERACILLIN/TAZO 4.5 GM/NS 100 ML IV SCH ×2 (18:16)
[2019-08-29] MEDS: CATHETER FLUSH 10 ML SYR IV SCH ×2 (18:17→22:47)
[2019-08-29] MEDS: HYDROcodone/APAP 10 MG/325 MG (LORTAB) TAB PO PRN (21:05)
[2019-08-29] MEDS: APIXABAN 5 MG (ELIQUIS) TABLET PO SCH (21:06)
--- NOTE | 2019-08-29 21:08 | History & Physical-Hospitalist ---
History of Present Illness HPI/Chief Complaint Chief complaint: Pneumonia with sepsis History of present illness: This is an 83-year-old white female clinic patient formerly [facility], [facility] in [place] [facility] and [facility]. Patient was found to have a pneumonia. She also had a UTI. 3 weeks ago she had a pacemaker placed. Patient was shown to have volume overload so cardiology and pulmonology were both consulted. Patient reports a cough that is productive of yellow sputum. She is asking for her hydrocodone she [facility] the [facility]. She is trying to use her incentive spirometer. Source: patient, RN/MD, old records Exam Limitations: clinical condition Date Seen 08/29/19 Time Seen by a Provider: 18:10 Attending Physician Allison Vo Jay L MD Referring Physician Date of Admission Aug 29, 2019 at 10:57 Home Medications & Allergies Home Medications Reviewed patient Home Medication Reconciliation performed by pharmacy medication reconciliations communication technician and/or nursing. Patients Allergies have been reviewed. Allergies Allergies Coded Allergies Sulfa (Sulfonamide Antibiotics) (Verified Allergy, Unknown, 08/29/19) capsaicin (Verified Allergy, Unknown, 08/29/19) ciprofloxacin (Verified Allergy, Unknown, 08/29/19) codeine (Verified Allergy, Unknown, 08/29/19) simvastatin (Verified Allergy, Unknown, 08/29/19) Past Zkhqqlk-Ncbumu-Lrsvua Hx Past Med/Social Hx: Reviewed Nursing Past Med/Soc Hx, Reviewed and Corrections made Patient Social History Marrital Status: single Alcohol Use: Denies Use Recreational Drug Use: No Smoking Status: Never a Smoker 2nd Hand Smoke Exposure: No Recent Foreign Travel: No Contact w/other who traveled: No Recent Hopitalizations: Yes (PACEMAKER PLACED 08/09/19) Recent Infectious Disease Expo: No Immunizations Up To Date Date of Pneumonia Vaccine: Aug 29, 2016 Seasonal Allergies Seasonal Allergies: No Past Medical History Surgeries: Appendectomy, Bowel Surgery, Cardiac, Pacemaker, Valve Replacement Cardiac: Atrial Fibrillation, High Cholesterol, Hypertension, Valvular Heart Disease Gastrointestinal: Gastroesophageal Reflux Endocrine: Diabetes, Non-Insulin dep Cancer: Colon Did You Recieve Any Treatments: Yes What Type of Treatment Did You: Surgical Intervention History of Blood Disorders: No Family History Reviewed Nursing Family Hx No Pertinent Family Hx Review of Systems Constitutional: see HPI, dizziness, fever, malaise, weakness Respiratory: cough, dyspnea on exertion Genitourinary: dysuria Psychiatric/Neurological: Depressed All Other Systems Reviewed Negative Unless Noted: Yes Physical Exam Physical Exam Vital Signs Vital Signs - First Documented 08/29/19 08/29/19 08:00 08:56 Temp 36.7 Pulse 82 Resp 16 B/P (MAP) 130/65 (86) Pulse Ox 95 O2 Delivery Room Air O2 Flow Rate 2.00 FiO2 95 Capillary Refill : Less Than 3 Seconds Height, Weight, BMI Height: '" Weight: lbs. oz. kg; 45.18 BMI Method: General Appearance: WD/WN, Chronically ill, Mild Distress Eyes: Right Eye Normal Inspection, Right Eye PERRL HEENT: PERRL/EOMI, Normal ENT Inspection, Pharynx Normal, Moist Mucous Membranes Neck: Full Range of Motion, Normal Inspection, Non Tender Respiratory: Chest Non Tender, No Accessory Muscle Use, No Respiratory Distress, Crackles, Decreased Breath Sounds, Wheezing Cardiovascular: Regular Rate, Rhythm, No Edema, No Gallop, No JVD, No Murmur, Normal Peripheral Pulses Gastrointestinal: Normal Bowel Sounds, No Organomegaly, No Pulsatile Mass, Non Tender, Soft Back: Normal Inspection, No CVA Tenderness, No Vertebral Tenderness Extremity: Normal Capillary Refill, Normal Inspection, Normal Range of Motion, Non Tender, No Calf Tenderness, No Pedal Edema Neurologic/Psychiatric: Alert, Oriented x3, No Motor/Sensory Deficits, Normal Mood/Affect Skin: Normal Color, Warm/Dry Lymphatic: No Adenopathy Results Results/Procedures Labs Laboratory Tests 08/29/19 08:45 Patient resulted labs reviewed. Assessment/Plan Admission Diagnosis Assessment: Sepsis Pneumonia UTI Recent pacemaker placement Hyperkalemia Volume overload Elevated BNP Advanced age Presbycusis Chronic pain Plan: Appreciate cardiology and pulmonology consultations ICU IV antibiotics Monitor closely Admission Status: Inpatient Order (span 2 midnights) Reason for Inpatient Admission: Sepsis with PNA and UTI Diagnosis/Problems Diagnosis/Problems (1) Sepsis (2) Elevated brain natriuretic peptide (BNP) level (3) Pacemaker (4) Presbycusis of both ears (5) Hyperkalemia (6) Advanced age (7) Pneumonia involving right lung Status: Acute Qualifiers: Pneumonia type: due to unspecified organism Lung location: unspecified part of lung Qualified Codes: J18.9 - Pneumonia, unspecified organism (8) Urinary tract infection Status: Acute Qualifiers: Urinary tract infection type: acute cystitis Hematuria presence: without hematuria Qualified Codes: N30.00 - Acute cystitis without hematuria (9) Acute heart failure Status: Acute Qualifiers: Heart failure type: unspecified Qualified Codes: I50.9 - Heart failure, unspecified Clinical Quality Measures DVT/VTE Risk/Contraindication: Risk Factor Score Per Nursin RFS Level Per Nursing on Admit: 4+=Very High ALLISON VO DO Aug 29, 2019 21:07 POS
[2019-08-30] VITALS: BP 115/60
[2019-08-30] MEDS: PIPERACILLIN/TAZO 4.5 GM/NS 100 ML IV SCH ×6 (02:00→17:53)
[2019-08-30 04:00] VITALS: BP 133/72
[2019-08-30 04:09] LABS: BASOPHILS % (AUTO) 0 % (0-10); EOSINOPHILS # (AUTO) 0.1 10^3/uL (0.0-0.3); EOSINOPHILS % (AUTO) 1 % (0-10); HEMATOCRIT 34 % (35-52); HEMOGLOBIN 10.6 G/DL (11.5-16.0); LYMPHOCYTES # (AUTO) 1.8 X 10^3 (1.0-4.0); LYMPHOCYTES % (AUTO) 23 % (12-44); MEAN CORPUSCULAR HEMOGLOBIN 28 PG (25-34); MEAN CORPUSCULAR HGB CONC 31 G/DL (32-36); MEAN CORPUSCULAR VOLUME 91 FL (80-99); MEAN PLATELET VOLUME 12.3 FL (7.4-10.4); MONOCYTES # (AUTO) 0.6 X 10^3 (0.0-1.0); MONOCYTES % (AUTO) 8 % (0-12); NEUTROPHILS # (AUTO) 5.2 X 10^3 (1.8-7.8); NEUTROPHILS % (AUTO) 68 % (42-75); PLATELET COUNT 170 10^3/uL (130-400); RED CELL DISTRIBUTION WIDTH 14.9 % (10.0-14.5); WHITE BLOOD COUNT 7.7 10^3/uL (4.3-11.0)
[2019-08-30 04:47] LABS: ALANINE AMINOTRANSFERASE < 6 U/L (0-55); ALBUMIN 3.2 GM/DL (3.2-4.5); ALKALINE PHOSPHATASE 96 U/L (40-136); BILIRUBIN,TOTAL 0.7 MG/DL (0.1-1.0); BUN/CREATININE RATIO 17; CALCIUM 8.7 MG/DL (8.5-10.1); CARBON DIOXIDE 28 MMOL/L (21-32); CHLORIDE 101 MMOL/L (98-107); CREATININE SERUM 0.76 MG/DL (0.60-1.30); GFR ESTIMATED > 60; GLUCOSE 105 MG/DL (70-105); MAGNESIUM 1.9 MG/DL (1.6-2.4); POTASSIUM 3.6 MMOL/L (3.6-5.0); SODIUM 142 MMOL/L (135-145); TOTAL PROTEIN 6.1 GM/DL (6.4-8.2)
[2019-08-30] MEDS: CATHETER FLUSH 10 ML SYR IV SCH ×3 (06:12→20:11)
[2019-08-30] MEDS: FUROSEMIDE 40 MG/4 ML INJ (LASIX) IV SCH ×2 (06:31→17:53)
--- NOTE | 2019-08-30 07:16 | Pulmonary Progress Note ---
Subjective Time Seen by a Provider: 07:13 Subjective/Events-last exam Pt appears to be doing better. Sepsis Event Evaluation Height, Weight, BMI Height: '" Weight: lbs. oz. kg; 45.18 BMI Method: Focused Exam Lactate Level 08/29/19 08:45: Lactic Acid Level 1.56 Exam Exam Vital Signs Date Time Temp Pulse Resp B/P (MAP) Pulse Ox O2 Delivery O2 Flow Rate FiO2 08/30/19 04:00 80 133/72 (92) 97 Nasal Cannula 2.00 08/30/19 01:00 81 08/30/19 00:00 36.6 08/30/19 00:00 80 115/60 (78) 98 Nasal Cannula 2.00 08/29/19 21:00 97 Nasal Cannula 2.00 95 08/29/19 20:25 36.8 08/29/19 19:27 97 Nasal Cannula 2.00 08/29/19 19:00 84 08/29/19 17:13 80 08/29/19 16:03 94 Nasal Cannula 2.00 08/29/19 16:00 80 16 117/59 (78) 97 Nasal Cannula 2.00 08/29/19 15:46 36.7 08/29/19 15:32 97 Nasal Cannula 2.00 08/29/19 13:57 36.7 82 95 28 08/29/19 12:31 86 08/29/19 12:30 Nasal Cannula 2.00 08/29/19 12:30 86 22 120/75 (90) 94 Nasal Cannula 2.00 08/29/19 11:42 36.7 80 16 112/45 (86) 95 2.00 08/29/19 08:56 2.00 95 08/29/19 08:00 36.7 82 16 130/65 (86) 95 Room Air I & O 08/30/19 07:00 Intake Total 1750 ml Output Total 3800 ml Balance -2050 ml Height & Weight Height: '" Weight: lbs. oz. kg; 45.18 BMI Method: General Appearance: No Apparent Distress, WD/WN, Chronically ill HEENT: PERRL/EOMI, Normal ENT Inspection, Pharynx Normal, Moist Mucous Membranes Neck: Full Range of Motion, Normal Inspection, Non Tender Respiratory: Chest Non Tender, No Accessory Muscle Use, No Respiratory Distress, Crackles, Decreased Breath Sounds, Wheezing Cardiovascular: Regular Rate, Rhythm, No Edema, No Gallop, No JVD, No Murmur, Normal Peripheral Pulses Capillary Refill: Less Than 3 Seconds Extremity: Normal Capillary Refill, Normal Inspection, Normal Range of Motion, Non Tender, No Calf Tenderness, No Pedal Edema Neurologic/Psychiatric: Alert, Oriented x3, No Motor/Sensory Deficits, Normal Mood/Affect Skin: Normal Color, Warm/Dry Lymphatic: No Adenopathy Results Lab Laboratory Tests 08/29/19 08:45 08/30/19 03:50 Assessment/Plan Assessment/Plan Acute worsening SOB doubt PNA -Continuje Lasix -Repeat CXR pending -Ytaes cultures -Currently on Zosyn -Ok to D//C from pulmonary standpoint UTI Pulmonary edema -Continue Lasix Anemia -Monitor S/p recent pacemaker placement Hyperkalemia - Now resolved JOSE G HANEY DO Aug 30, 2019 07:16 POS
[2019-08-30 08:10] VITALS: BP 140/71
--- NOTE | 2019-08-30 08:22 | Diagnostic Imaging Report ---
INDICATION: Shortness of breath. TECHNIQUE: Single view chest 7:55 AM. CORRELATION STUDY: 08/29/2019 FINDINGS: Left-sided unipolar pacemaker is present. There is presence of a aortic vascular stent. Heart size remains enlarged and mediastinum prominent. Vasculature is increased but overall perhaps slightly less severe. Prominent interstitial markings throughout both lung magdaleno. No definitive new infiltrate. IMPRESSION: 1. Stable cardiac enlargement. Vascular congestion present but does appear to be perhaps slightly improved. Dictated by: Dictated on workstation # [id number]
--- NOTE | 2019-08-30 08:29 | Progress Note - Cardiology ---
Cardiology SOAP Progress Note Subjective: In bed. States she feels like the congestion in her chest is improving. Continues to c/o SOB. No c/o CP or palpitations. Objective: I&O/Vital Signs 08/30/19 08/31/19 21:00 00:24 Temp 36.5 Pulse 80 Resp 24 B/P (MAP) 115/67 (83) Pulse Ox 97 O2 Delivery Nasal Cannula Nasal Cannula O2 Flow Rate 2.00 2.00 08/31/19 00:00 Intake Total 1560 ml Output Total 850 ml Balance 710 ml Constitutional: AAO x 3, well-developed, well-nourished Respiratory: No accessory muscle use, No respiratory distress; chest expansion is symmetric, chest is bilaterally symmetric, crackles (coarse breath sounds) Cardiovascular: irregularly irregular; No JVD; S1 and S2 Gastrointestional: No tender; soft, round, audible bowel sounds Extremities: other (mild to mod bilat LE swelling) Neurologic/Psychiatric: grossly intact (moves extremities) Skin: normal color, warm/dry Results/Procedures: Labs Laboratory Tests 08/31/19 08:00: Sodium Level 140, Potassium Level 3.7, Chloride Level 99, Carbon Dioxide Level 27, Anion Gap 14, Blood Urea Nitrogen 17, Creatinine 0.84, Estimat Glomerular Filtration Rate > 60, BUN/Creatinine Ratio 20, Glucose Level 110H, Calcium Level 9.0, Magnesium Level 2.0 Microbiology 08/29/19 Blood Culture - Preliminary, Resulted No growth 08/29/19 Gram Stain - Final, Resulted 08/29/19 Sputum Culture - Preliminary, Resulted Usual upper respiratory dimitrios 08/29/19 Urine Culture - Preliminary, Resulted Escherichia coli A/P: Assessment: Progressive shortness of breath, multifactorial (see below) Probable pneumonia Acute on chronic diastolic CHF Echo of 08-29-19: LVEF 60-65%. LA severely dilated. Mild to mod calcified annulus with mild MR. Bioprosthetic AoV present. Mild to mod TR. 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 Fitzgerald H/O PPM implant on Aug 09, 2019 at [facility] [address] Fitzgerald H/O colon cancer with colectomy - details unknown H/O frequent UTI's TSH 0.06 on 08-30-19 - indicative of hyperthyroidism - medical services Plan: Awaiting records from [facility] Continue home medications including Eliquis d/t known h/o chronic a-fib Monitor lab closely Treat with IV diuretics as indicated Replace electrolytes TSH 0.06 indicative if hyperthyroidism Treatment of pneumonia per medical services WILBERT BAINS Aug 30, 2019 08:29 POS
[2019-08-30] MEDS ORDERED: ACETAMINOPHEN 325 MG TABLET PO PRN (08:30)
[2019-08-30] MEDS ORDERED: NON-FORMULARY MEDICATION 1 EA EA (Lisinopril 2.5 MG) PO SCH (09:00)
--- NOTE | 2019-08-30 09:02 | Progress Note - Hospitalist ---
[facility] 08/30/19 0902: Subjective HPI/CC On Admission Date Seen by Provider: Aug 30, 2019 Time Seen by Provider: 08:00 Chief complaint: Pneumonia with sepsis History of present illness: This is an 83-year-old white female clinic patient of [facility] in [place] who presented from the care home with hypoxia and fever. Patient was found to have a pneumonia. She also had a UTI. 3 weeks ago she had a pacemaker placed. Patient was shown to have volume overload so cardiology and pulmonology were both consulted. Patient reports a cough that is productive of yellow sputum. She is asking for her hydrocodone she takes at the care home. She is trying to use her incentive spirometer. Subjective/Events-last exam Patient appeared tired Patient said that she still feels congested in her chest and head Patient denies trouble breathing but appears to have increase respiratory effort Patient is coughing and occasionally has green/yellow phlegm Her breathing treatments makes it better Chest x-ray showed Stable cardiac enlargement. Vascular congestion present but does appear to be perhaps slightly improved. Echo showed left atrium dilation with mitral calcification and regurge Pro BNP 1568 TSH 0.06 Review of Systems General: No Chills, No Other (fevers) HEENT: No Eye Pain, No Ear Pain Pulmonary: No Dyspnea; Cough Cardiovascular: No: Chest Pain, Palpitations Gastrointestinal: No: Nausea, Vomiting, Abdominal Pain Genitourinary: Other (Patient has catheter) Neurological: No: Numbness Focused Exam Lactate Level 08/29/19 08:45: Lactic Acid Level 1.56 Objective Exam Vital Signs Vital Signs Date Time Temp Pulse Resp B/P (MAP) Pulse Ox O2 Delivery O2 Flow Rate FiO2 08/30/19 10:15 36.0 51 20 118/76 (90) 93 Nasal Cannula 2.00 08/29/19 21:00 95 Capillary Refill : Less Than 3 Seconds General Appearance: No Apparent Distress, Other (Tired) Neck: Normal Inspection, Supple Respiratory: Chest Non Tender, Decreased Breath Sounds (On the right side and at the bases bilaterally), Other (Increased Respiratory effort) Cardiovascular: Regular Rate, Rhythm, Normal Peripheral Pulses (2/4 radial Bilaterally), Other (2+edema in the legs) Gastrointestinal: Non Tender, Soft Back: Normal Inspection Extremity: Non Tender, No Calf Tenderness Neurologic/Psychiatric: Alert, Oriented x3, Normal Mood/Affect Skin: Normal Color, Warm/Dry Results/Procedures Lab Laboratory Tests 08/30/19 03:50 Patient resulted labs reviewed. Assessment/Plan Assessment and Plan Assess & Plan/Chief Complaint Pneumonia UTI CHF Sinus infection Hyperthyroidism, thyroiditis, or overly medicated for hypothyroidism Cough Antibiotics UA culture Check Free T4 Clinical Quality Measures DVT/VTE Risk/Contraindication: Risk Factor Score Per Nursin RFS Level Per Nursing on Admit: 4+=Very High ALLISON GALLARDO DO 08/30/192047: Subjective Subjective/Events-last exam Pt doing pretty well TSH 0.06 and she is not on any thyroid medication so it could be an evidence of hypothyroidism Still with cough but overall the breathing treatments are really helping and maintained on broad spectrum Zosyn for UTI and pneumonia Cough remains productive Appreciate cardiology and pulmonology Review of Systems General: Fatigue Objective Exam General Appearance: No Apparent Distress, WD/WN Respiratory: Crackles, Decreased Breath Sounds (On the right side and at the bases bilaterally), Wheezing Cardiovascular: Regular Rate, Rhythm Neurologic/Psychiatric: Alert, Oriented x3, No Motor/Sensory Deficits, Normal Mood/Affect Assessment/Plan Assessment and Plan Assess & Plan/Chief Complaint Abx Nebs Eval FT4 Diagnosis/Problems Diagnosis/Problems (1) Pneumonia involving right lung Status: Acute Qualifiers: Qualified Codes: J18.9 - Pneumonia, unspecified organism (2) Urinary tract infection Status: Acute Qualifiers: Qualified Codes: N30.00 - Acute cystitis without hematuria (3) Acute heart failure Status: Acute Qualifiers: Qualified Codes: I50.9 - Heart failure, unspecified (4) Hyperkalemia (5) Sepsis (6) Pacemaker (7) Advanced age (8) Elevated brain natriuretic peptide (BNP) level (9) Presbycusis of both ears Supervisory-Addendum Brief Verification & Attestation Participated in pt care: history, MDM, physical Personally performed: exam, history, MDM, supervision of care Care discussed with: Medical Student Procedures: n/a Results interpretation: Verified all documentation Verification and Attestation of Medical Student E/M Service A medical student performed and documented this service in my presence. I reviewed and verified all information documented by the medical student and made modifications to such information, when appropriate. I personally performed the physical exam and medical decision making. Allison Gallardo, Aug 30, 2019,20:47 [facility] Aug 30, 2019 09:02 ALLISON PEDRO DO Aug 30, 2019 20:48 POS
--- NOTE | 2019-08-30 09:29 | Progress Note - Cardiology ---
Cardiology SOAP Progress Note Subjective: Still has productive cough Denies cp Shortness of breath with mild to mod exertion No palp or syncope or leg swelling No N/V Gen weakness and malaise are present Objective: I&O/Vital Signs 08/30/19 08/30/19 08/30/19 08/30/19 00:00 00:00 01:00 04:00 Temp 36.6 Pulse 80 81 80 B/P (MAP) 115/60 (78) 133/72 (92) Pulse Ox 98 97 O2 Delivery Nasal Cannula Nasal Cannula O2 Flow Rate 2.00 2.00 08/30/19 00:00 Intake Total 1550 ml Output Total 2950 ml Balance -1400 ml Constitutional: AAO x 3, well-developed, well-nourished Respiratory: No accessory muscle use, No respiratory distress; chest expansion is symmetric, chest is bilaterally symmetric, crackles (coarse breath sounds) Cardiovascular: irregularly irregular; No JVD; S1 and S2 Gastrointestional: No tender; soft, round, audible bowel sounds Extremities: other (mild to mod bilat LE swelling) Neurologic/Psychiatric: grossly intact (moves extremities) Skin: normal color, warm/dry Results/Procedures: Labs Laboratory Tests 08/29/19 09:45: Urine Color DARK YELLOW, Urine Clarity CLOUDY, Urine pH 7.0, Urine Specific [place] 1.015L, Urine Protein NEGATIVE, Urine Glucose (UA) NEGATIVE, Urine Ketones NEGATIVE, Urine Nitrite NEGATIVE, Urine Bilirubin NEGATIVE, Urine Urobilinogen 0.2, Urine Leukocyte Esterase TRACEH, Urine RBC (Auto) NEGATIVE, Urine RBC 0-2, Urine WBC 5-10H, Urine Squamous Epithelial Cells 5-10, Urine Crystals NONE, Urine Bacteria LARGEH, Urine Casts NONE, Urine Mucus NEGATIVE, Urine Culture Indicated CULTURE PENDING 08/30/19 03:50: White Blood Count 7.7, Red Blood Count 3.78L, Hemoglobin 10.6L, Hematocrit 34L, Mean Corpuscular Volume 91, Mean Corpuscular Hemoglobin 28, Mean Corpuscular H emoglobin Concent 31L, Red Cell Distribution Width 14.9H, Platelet Count 170, Mean Platelet Volume 12.3H, Neutrophils (%) (Auto) 68, Lymphocytes (%) (Auto) 23, Monocytes (%) (Auto) 8, Eosinophils (%) (Auto) 1, Basophils (%) (Auto) 0, Neutrophils # (Auto) 5.2, Lymphocytes # (Auto) 1.8, Monocytes # (Auto) 0.6, Eosinophils # (Auto) 0.1, Basophils # (Auto) 0.0, Sodium Level 142, Potassium Level 3.6, Chloride Level 101, Carbon Dioxide Level 28, Anion Gap 13, Blood Urea Nitrogen 13, Creatinine 0.76, Estimat Glomerular Filtration Rate > 60, BUN/Creatinine Ratio 17, Glucose Level 105, Calcium Level 8.7, Corrected Calcium 9.3, Magnesium Level 1.9, Total Bilirubin 0.7, Aspartate Amino Transf (AST/SGOT) 10, Alanine Aminotransferase (ALT/SGPT) < 6, Alkaline Phosphatase 96, Total Protein 6.1L, Albumin 3.2, Thyroid Stimulating Hormone (TSH) 0.06L A/P: Assessment: Progressive shortness of breath, multifactorial (see below) Probable pneumonia Acute on chronic diastolic CHF Echo of 08-29-19: LVEF 60-65%. LA severely dilated. Mild to mod calcified annulus with mild MR. Bioprosthetic AoV present. Mild to mod TR. 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 Fitzgerald H/O PPM implant on Aug 09, 2019 at [facility] by Dr. Fitzgerald H/O colon cancer with colectomy - details unknown H/O frequent UTI's TSH 0.06 on 08-30-19 - indicative of hyperthyroidism - Medical Services Plan: Awaiting records from [facility] Continue home medications including Eliquis d/t known h/o chronic a-fib Monitor lab closely Treat with IV diuretics as indicated Replace electrolytes TSH 0.06 indicative of hyperthyroidism, Hospitalist Service to treat Treatment of pneumonia per Hospitalist and Pulmonary services WAN YBARRA MD FACP [facility] Aug 30, 2019 09:29 POS
[2019-08-30] MEDS: RT-ALBUTEROL/IPRATROPIUM 3 ML (DUONEB) VIAL INH SCH ×4 (09:39→19:27)
--- NOTE | 2019-08-30 09:42 | NUR ---
patient did not get her 0600 svn bt due to RT not being available
--- NOTE | 2019-08-30 09:45 | NUR ---
Pt arrived to floor with DATA DELIVERABLES MANAGER. Pt oriented to room and call light, pt denies needs at this time, bed alarm set, call light in reach, will continue to monitor
[2019-08-30] MEDS: ASPIRIN E.C. 81 MG (ECOTRIN) TAB PO SCH (09:46)
[2019-08-30] MEDS: lisINopril 5 MG (PRINIVIL) TABLET PO SCH (09:46)
[2019-08-30] MEDS: APIXABAN 5 MG (ELIQUIS) TABLET PO SCH ×2 (09:47→20:11)
[2019-08-30 10:15] VITALS: BP 118/76
--- NOTE | 2019-08-30 10:25 | Occupational Therapy Eval ---
OT Evaluation-General/PLF Medical Diagnosis Admission Date Aug 29, 2019 at 10:57 Medical Diagnosis: pneumonia with sepsis and UTI Onset Date: Aug 29, 2019 Therapy Diagnosis Therapy Diagnosis: impaired ADLs and functional mobility Precautions Precautions/Isolations: Fall Prevention, Standard Precautions Referral Physician: paul Referral Reason: Activity Tolerance, Self Care, Evaluation/Treatment, Strengthening/ROM Medical History Pertinent Medical History: Atrial Fib, DM, HTN Additional Medical History Pacemaker (placed 08/09/19), high cholesterol, valvular heart disease, Current History Per H&P: "History of present illness: This is an 83-year-old white female clinic patient of [facility] in [place] who presented from the longterm with hypoxia and fever. Patient was found to have a pneumonia. She also had a UTI. 3 weeks ago she had a pacemaker placed. Patient was shown to have volume overload so cardiology and pulmonology were both consulted. Patient reports a cough that is productive of yellow sputum. She is asking for her hydrocodone she takes at the longterm. She is trying to use her incentive spirometer." Reviewed History: Yes Social History Home: [facility]way (since pacemaker placement 3 weeks ago) Pt has been living at a longterm for the past few weeks since her pacemaker, pt reports living alone at home prior ADL-Prior Level of Function SCALE: Activities may be completed with or without assistive devices. 3-Ohhcnuixll-fhxjilp completes the activity by him/herself with no assistance f rom a helper. 5-Set-up or Clean-up Assistance-helper sets up or cleans up; patient completes activity. [place] assists only prior to or following the activity. 4-Supervision or Touching Assistance-helper provides verbal cues and/or touching/steadying and/or contact guard assistance as patient completes activity. Assistance may be provided throughout the activity or intermittently. 3-Partial/Moderate Assistance-helper does LESS THAN HALF the effort. [place] lifts, holds or supports trunk or limbs, but provides less than half the effort. 2-Substantial/Maximal Assistance-helper does MORE THAN HALF the effort. [place] lifts or holds trunk or limbs and provides more than half the effort. 8-Pwknxvtat-nuojph does ALL the effort. Patient does none of the effort to complete the activity. Or, the assistance of 2 or more helpers is required for the patient to complete the activity. If activity was not attempted, code reason: 7-Patient Refused. 9-Not Applicable-not attempted and the patient did not perform the activity before the current illness, exacerbation or injury. 10-Not Attempted due to Environmental Limitations-(lack of equipment, weather restraints, etc.). 88-Not Attempted due to Medical Conditions or Safety Concerns. ADL PLOF Comments Pt reports being independent with ADLs prior to pacemaker placement. Since she has had her pacemaker, she has required assistance with ADLs secondary to her being told she is unable to lift her left arm for 30 days after pacemaker placement. Self Care: Needed Some Help Functional Cognition: Independent OT Current Status Subjective Pt laying in bed with nursing present at start of session, agreeable to OT evaluation. Nurse stated pt is being transferred from ICU to room 430. OT assisted with transfer of pt to 4th floor, pt provided information about PLOF during transportation. Mental Status/Objective Patient Orientation: Person, Place, Time, Situation Attachments: Rutledge Catheter, IV Current Glasses/Contacts: Yes Hearing Aids: No Dentures/Partials: Yes Hand Dominance: Right Upper Extremity ROM Pt stated she is unable to lift left arm for 30 days post pacemaker placement. RUE shoulder flexion approximately 20 degrees, pt reported increased pain relating it to nerve damage on that side. Upper Extremity Coordination no deficits noted this tx Upper Extremity Sensation pt reported numbness along her right arm, correlating it with nerve damage on that side Upper Extremity Strength grossly 2+/5 MMT ADL-Treatment Eating (QC): 7 Oral Hygiene (QC): 7 Shower/Bathe Self (QC): 7 Upper Body Dressing (QC): 7 Lower Body Dressing (QC): 7 On/Off Footwear (QC): 7 Toileting Hygiene (QC): 7 Toilet Transfer (QC): 7 Pt stated she was tired, denied all ADLs on this date. Other Treatments OT assisted nursing with transporting pt from ICU to 4th floor. Pt provided information about PLOF and provided information for the evaluation during t [place]. Once pt arrived in room 430, pt declined all ADLs and declined sitting EOB stating she is tired and too worn out. OT educated pt on OT POC while she is in the hospital. Post OT session, pt laying in bed, call light in reach, all needs met with aide and nurse present. Education OT Patient Education: Correct positioning, Energy conservation, Modified ADL techniques, Progress toward Goal/Update tx plan, Purpose of tx/functional activities Teaching Recipient: Patient Teaching Methods: Demonstration Response to Teaching: Verbalize Understanding OT Nursing Home Goals Nursing Home Goals Time Frame: Sep 08, 2019 Eating (QC): 6 Oral Hygiene (QC): 6 Toileting Hygiene (QC): 3 Shower/Bathe Self (QC): 3 Upper Body Dressing (QC): 3 Lower Body Dressing (QC): 3 On/Off Footwear (QC): 3 Additional Goals: 1-Demonstrate ADL Tasks, 2-Verbalize Understanding, 3- ImproveStrength/Navneet 1=Demonstrate adherence to instructed precautions during ADL tasks. 2=Patient will verbalize/demonstrate understanding of assistive devices/modifications for ADL. 3=Patient will improve strength/tolerance for activity to enable patient to perform ADL's. OT Education/Plan Problem List/Assessment Assessment: Decreased Activ Tolerance, Decreased UE Strength, Impaired I ADL's, Impaired Self-Care Skills Discharge Recommendations Plan/Recommendations: Continue POC Treatment Plan/Plan of Care Treatment,Training & Education: Yes Patient would benefit from OT for education, treatment and training to promote independence in ADL's, mobility, safety and/or upper extremity function for ADL's. Plan of Care: ADL Retraining, Caregiver Training, Functional Mobility, UE Funct Exercise/Act Treatment Duration: Sep 08, 2019 Frequency: 5 times per week Estimated Hrs Per Day: .25 hour per day Agreement: Yes Rehab Potential: Fair Time/GCodes Start Time: 10:10 Stop Time: 10:18 Total Time Billed (hr/min): 8 Billed Treatment Time 1, CAROLYNN COLLINS OT Aug 30, 2019 10:25 POS
--- NOTE | 2019-08-30 10:54 | NUR ---
TIMELINE NOTE: 0700: REPORT RECEIVED, PT IS RESTING WITH EYES CLOSED IN NAD AT THIS TIME. 0810: ASSESSMENT COMPLETED, PT DENIES COMPLAINTS. COUGHING IS "BETTER", COUGHING UP GREEN/YELLOW SPUTUM. 1035: PT TRANSFERRED TO ROOM 430 WITH ALL PERSONAL BELONGINGS.
--- NOTE | 2019-08-30 11:04 | Physical Therapy Evaluation ---
PT Evaluation-General Medical Diagnosis Admission Date Aug 29, 2019 at 10:57 Medical Diagnosis: pneumonia with sepsis and UTI Onset Date: Aug 29, 2019 Therapy Diagnosis Therapy Diagnosis: SOB, gen weak, decreased activity sindi Precautions Precautions/Isolations: Fall Prevention, Standard Precautions Weight Bear Status Right Lower Extremity: Right Weight Bearing/Tolerated Left Lower Extremity: Left Weight Bearing/Tolerated Referral Physician: paul Reason for Referral: Evaluation/Treatment Medical History Pertinent Medical History: Atrial Fib, DM, HTN Additional Medical History Past Medical History Surgeries: Appendectomy, Bowel Surgery, Cardiac, Pacemaker, Valve Replacement Cardiac: Atrial Fibrillation, High Cholesterol, Hypertension, Valvular Heart Disease Gastrointestinal: Gastroesophageal Reflux Endocrine: Diabetes, Non-Insulin dep Cancer: Colon Did You Recieve Any Treatments: Yes What Type of Treatment Did You: Surgical Intervention History of Blood Disorders: No Reviewed History: Yes Social History Home: [facility] (since pacemaker placement 3 weeks ago for rehab only) Current Living Status: Alone pt reports her home she plans to go back to after rehab is a single level handicap accessible Prior Prior Level of Function SCALE: Activities may be completed with or without assistive devices. 8-Gvlgowbvej-eeoamej completes the activity by him/herself with no assistance from a helper. 5-Set-up or Clean-up Assistance-helper sets up or cleans up; patient completes activity. [place] assists only prior to or following the activity. 4-Supervision or Touching Assistance-helper provides verbal cues and/or touching/steadying and/or contact guard assistance as patient completes activity. Assistance may be provided throughout the activity or intermittently. 3-Partial/Moderate Assistance-helper does LESS THAN HALF the effort. [place] lifts, holds or supports trunk or limbs, but provides less than half the effort. 2-Substantial/Maximal Assistance-helper does MORE THAN HALF the effort. [place] lifts or holds trunk or limbs and provides more than half the effort. 7-Bdctrcdaa-shgcax does ALL the effort. Patient does none of the effort to complete the activity. Or, the assistance of 2 or more helpers is required for the patient to complete the activity. If activity was not attempted, code reason: 7-Patient Refused. 9-Not Applicable-not attempted and the patient did not perform the activity before the current illness, exacerbation or injury. 10-Not Attempted due to Environmental Limitations-(lack of equipment, weather restraints, etc.). 88-Not Attempted due to Medical Conditions or Safety Concerns. Bed Mobility: 6 Transfers (B,C,W/C): 6 Gait: 6 Indoor Mobility (Ambulation): Independent Stairs: Not Applicalbe pt reports at this time she can not push/pull/lift with her LUE secondary to recent pacer placement PT Evaluation-Current Subjective pt in bed pre-tx agrees to therapy and says she will do what she can. pt denies pain pt in recliner post-tx with call light, room phone, table in reach with all needs met. Pt/Family Goals pt wants to go back home by herself Objective Patient Orientation: Person, Place, Time, Situation Attachments: Rutledge Catheter, IV ROM/Strength Strength Lower Extremities unable to functionally test secondary to pt reporting she can't hold her legs in positions because of her SOB Integumentary/Posture Integumentary see nursing notes Bowel Incontinence: No Bladder Incontinence: Rutledge Cath Sensory Vision: Functional Hearing: Functional Hand Dominance: Right Sensation Right Lower Extremit: Intact Sensation Left Lower Extremity: Intact Transfers Roll Left to Right (QC): 88 Sit to Lying (QC): 88 Lying to Sitting/Side of Bed(Q: 3 (modA) Sit to Stand (QC): 3 (modA) Chair/Ixh-pz-Ltggv Xfer(QC): 3 (modA) Car Transfer (QC): 88 chair transfer modAx1 stand pivot holding onto PT Gait Does the Patient Walk?: No and Walking Goal IS indicated Mode of Locomotion: Walk Anticipated Mode of Locomotion: Both Walk 10 feet (QC): 88 Walk 50 ft with 2 Turns(QC): 88 Walk 150 ft (QC): 8 Walking 10ft/uneven surface-QC: 88 Distance: 2' Gait Assistive Device: None Wheelchair Training Does the Pt Use a Wheelchair?: No Wheel 50 ft with 2 turns (QC): 88 Wheel 150 ft (QC): 88 Type of Wheelchair: Manual Stairs 1 Step (curb) (QC): 88 4 Steps (QC): 88 12 Steps (QC): 88 Balance Sitting Static: Fair Sitting Dynamic: Fair Standing Static: Poor Standing Dynamic: Poor Picking up an Object (QC): 88 Treatment pt performed bed mobility training, transfer training, education, and functional LE strengthening (10 reps supine: AP's, HS's SLR {AAROM}) Assessment/Needs pt was able to get improved productive cough once sitting EOB and in the chair. Pt reports she felt better getting up off her back. Pt has significant B/L LE edema. Pt was able to bear weight through B/L LE and take multiple steps to get from the EOB to the chair. Rehab Potential: Fair PT Furs Salesperson Goals Custodial Goals PT Furs Salesperson Goals Time Frame: Sep 06, 2019 Roll Left & Right (QC): 6 Sit to Lying (QC): 3 (Marylou) Lying-Sitting on Side/Bed(QC): 3 (Marylou) Sit to Stand (QC): 3 (Marylou) Chair/Ohg-zh-Sdfee Xfer(QC): 3 (Marylou) Toilet Transfer (QC): 88 Car Transfer (QC): 88 Does the Patient Walk: Yes Walk 10 feet (QC): 3 (modA) Walk 50ft with 2 Turns (QC): 88 Walk 150 ft (QC): 88 Walking 10ft on Uneven Surface: 88 1 Step (curb) (QC): 9 4 Steps (QC): 9 12 Steps (QC): 9 Picking up an Object (QC): 88 Does the Pt use WC or Scooter?: No Type: N/A Type: N/A PT Plan Problem List Problem List: Activity Tolerance, Functional Strength, Safety, Balance, Gait, Transfer, Bed Mobility, ROM Treatment/Plan Treatment Plan: Continue Plan of Care Treatment Plan: Bed Mobility, Concurrent Therapy, Education, Functional Activity Navneet, Functional Strength, Gait, Safety, Therapeutic Exercise, Transfers Treatment Duration: Sep 06, 2019 Frequency: 6 times per week Estimated Hrs Per Day: .25 hour per day Patient and/or Family Agrees t: Yes Safety Risks/Education Patient Education: Gait Training, Transfer Techniques, Correct Positioning, Safety Issues Teaching Recipient: Patient Teaching Methods: Demonstration, Discussion Response to Teaching: Return Demonstration, Reinforcement Needed Discharge Recommendations Plan pt will perform transfer training, bed mobility training, skilled ambulation training, functional LE strengthening, and education. Therapy Discharge Recommendati: Other, See Comments ([facility] for cardiac rehab) Time/GCodes Time In: 1035 Time Out: 1055 Total Billed Treatment Time: 20 Total Billed Treatment 1 visit EVM 20' DOROTHY BANEGAS PT Aug 30, 2019 11:04 POS
[2019-08-30 12:00] VITALS: BP 147/81
[2019-08-30] MEDS: HYDROcodone/APAP 10 MG/325 MG (LORTAB) TAB PO PRN ×2 (12:23→20:11)
[2019-08-30 16:00] VITALS: BP 103/65
[2019-08-31 00:24] VITALS: BP 115/67
[2019-08-31] MEDS: PIPERACILLIN/TAZO 4.5 GM/NS 100 ML IV SCH ×6 (02:30→17:12)
[2019-08-31] MEDS: HYDROcodone/APAP 10 MG/325 MG (LORTAB) TAB PO PRN ×3 (06:35→23:58)
[2019-08-31] MEDS: FUROSEMIDE 40 MG/4 ML INJ (LASIX) IV SCH ×2 (06:35→16:02)
[2019-08-31] MEDS: CATHETER FLUSH 10 ML SYR IV SCH ×3 (06:35→20:03)
--- NOTE | 2019-08-31 06:56 | Pulmonary Progress Note ---
Subjective Time Seen by a Provider: 09:16 Subjective/Events-last exam No complications noted. Sepsis Event Evaluation Height, Weight, BMI Height: '" Weight: lbs. oz. kg; 45.18 BMI Method: Focused Exam Lactate Level 08/29/19 08:45: Lactic Acid Level 1.56 Exam Exam Vital Signs Date Time Temp Pulse Resp B/P (MAP) Pulse Ox O2 Delivery O2 Flow Rate FiO2 08/31/19 00:24 36.5 80 24 115/67 (83) 97 Nasal Cannula 2.00 08/30/19 21:00 Nasal Cannula 2.00 08/30/19 19:27 86 Room Air 08/30/19 16:00 37.2 80 20 103/65 (78) 94 Room Air 08/30/19 12:49 81 08/30/19 12:11 Nasal Cannula 2.00 08/30/19 12:00 37.1 84 20 147/81 (103) 92 Nasal Cannula 2.00 08/30/19 11:50 93 Room Air 08/30/19 10:15 36.0 51 20 118/76 (90) 93 Nasal Cannula 2.00 08/30/19 08:10 36.2 85 20 140/71 (94) 96 Room Air 08/30/19 08:10 97 Nasal Cannula 2.00 I & O 08/31/19 07:00 Intake Total 2320 ml Output Total 3300 ml Balance -980 ml Height & Weight Height: '" Weight: lbs. oz. kg; 45.18 BMI Method: General Appearance: No Apparent Distress, WD/WN HEENT: PERRL/EOMI, Normal ENT Inspection, Pharynx Normal, Moist Mucous Membranes Neck: Normal Inspection, Supple Respiratory: Crackles, Decreased Breath Sounds (On the right side and at the bases bilaterally), Wheezing Cardiovascular: Regular Rate, Rhythm Capillary Refill: Less Than 3 Seconds Gastrointestinal: normal bowel sounds, non tender, soft, no organomegaly, no pulsatile mass Extremity: Non Tender, No Calf Tenderness Neurologic/Psychiatric: Alert, Oriented x3, No Motor/Sensory Deficits, Normal Mood/Affect Skin: Normal Color, Warm/Dry Lymphatic: No Adenopathy Results Lab Laboratory Tests 08/29/19 08:45 08/30/19 03:50 Assessment/Plan Assessment/Plan Acute worsening SOB doubt PNA -- Now improved - Lasix -Repeat CXR pending -Yates cultures -Currently on Zosyn -Ok to D//C from pulmonary standpoint UTI Pulmonary edema -Continue Lasix Anemia -Monitor S/p recent pacemaker placement JOSE G HANEY DO Aug 31, 2019 06:55 POS
[2019-08-31] MEDS ORDERED: FUROSEMIDE 20 MG (LASIX) TAB PO ONE (07:00)
[2019-08-31 08:00] VITALS: BP 104/67
[2019-08-31 08:25] LABS: BUN/CREATININE RATIO 20; CARBON DIOXIDE 27 MMOL/L (21-32); CHLORIDE 99 MMOL/L (98-107); CREATININE SERUM 0.84 MG/DL (0.60-1.30); POTASSIUM 3.7 MMOL/L (3.6-5.0); SODIUM 140 MMOL/L (135-145)
[2019-08-31 08:26] LABS: GFR ESTIMATED > 60; GLUCOSE 110 MG/DL (70-105)
[2019-08-31] MEDS: ASPIRIN E.C. 81 MG (ECOTRIN) TAB PO SCH (08:32)
[2019-08-31] MEDS: APIXABAN 5 MG (ELIQUIS) TABLET PO SCH ×2 (08:33→20:03)
[2019-08-31] MEDS: lisINopril 5 MG (PRINIVIL) TABLET PO SCH (08:33)
--- NOTE | 2019-08-31 08:34 | Progress Note - Cardiology ---
Cardiology SOAP Progress Note Subjective: Lying in bed. She feels her breathing is much improved from admission. Not yet back to her baseline, but nearly there. Only c/o chest wall pain with coughing. No c/o palpitations. Objective: I&O/Vital Signs 08/31/19 08/31/19 09/01/19 09/01/19 21:00 23:50 08:00 08:21 Temp 36.6 36.5 Pulse 86 80 Resp 18 20 B/P (MAP) 115/68 (84) 124/57 (79) Pulse Ox 97 94 96 O2 Delivery Nasal Cannula Nasal Cannula Nasal Cannula Nasal Cannula O2 Flow Rate 2.00 2.00 2.00 2.00 09/01/19 00:00 Intake Total 1650 ml Output Total 2350 ml Balance -700 ml Constitutional: AAO x 3, well-developed, well-nourished Respiratory: No accessory muscle use, No respiratory distress; chest expansion is symmetric, chest is bilaterally symmetric, crackles (coarse breath sounds) Cardiovascular: irregularly irregular; No JVD; S1 and S2 Gastrointestional: No tender; soft, round, audible bowel sounds Extremities: other (mild to mod bilat LE swelling) Neurologic/Psychiatric: grossly intact (moves extremities) Skin: normal color, warm/dry Results/Procedures: Labs Laboratory Tests 09/01/19 05:50: White Blood Count 6.8, Red Blood Count 4.22L, Hemoglobin 12.0, Hematocrit 38, Mean Corpuscular Volume 90, Mean Corpuscular Hemoglobin 28, Mean Corpuscular Hemoglobin Concent 32, Red Cell Distribution Width 14.8H, Platelet Count 156, Mean Platelet Volume 12.5H, Neutrophils (%) (Auto) 57, Lymphocytes (%) (Auto) 30, Monocytes (%) (Auto) 9, Eosinophils (%) (Auto) 3, Basophils (%) (Auto) 1, Neutrophils # (Auto) 3.9, Lymphocytes # (Auto) 2.1, Monocytes # (Auto) 0.6, Eosinophils # (Auto) 0.2, Basophils # (Auto) 0.0, Sodium Level 138, Potassium Level 3.6, Chloride Level 98, Carbon Dioxide Level 28, Anion Gap 12, Blood Urea Nitrogen 20H, Creatinine 0.91, Estimat Glomerular Filtration Rate 59, BUN/Creatinine Ratio 22, Glucose Level 94, Calcium Level 9.3, Corrected Calcium 9.7, Total Bilirubin 0.9, Aspartate Amino Transf (AST/SGOT) 9, Alanine Aminotransferase (ALT/SGPT) < 6, Alkaline Phosphatase 90, Total Protein 6.7, Albumin 3.5 Microbiology 08/29/19 Blood Culture - Preliminary, Resulted No growth 08/29/19 Gram Stain - Final, Complete 08/29/19 Sputum Culture - Final, Complete Usual upper respiratory dimitrios 08/29/19 Urine Culture - Final, Complete Escherichia coli A/P: Assessment: Progressive shortness of breath, multifactorial (see below) Probable pneumonia Acute on chronic diastolic CHF - clinically improved Echo of 08-29-19: LVEF 60-65%. LA severely dilated. Mild to mod calcified annulus with mild MR. Bioprosthetic AoV present. Mild to mod TR. 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 Fitzgerald H/O PPM implant on Aug 09, 2019 [address] [facility] by Dr. Fitzgerald H/O colon cancer with colectomy - details unknown H/O frequent UTI's TSH 0.06 on 08-30-19 - indicative of hyperthyroidism - Medical Services Plan: Awaiting records from [facility] - second request Continue current medication regimen Monitor lab closely Change IV Lasix to oral Treatment of pneumonia per Hospitalist and Pulmonary services WILBERT BAINS Aug 31, 2019 08:34 POS
[2019-08-31] MEDS: RT-ALBUTEROL/IPRATROPIUM 3 ML (DUONEB) VIAL INH SCH ×3 (09:01→18:55)
[2019-08-31] MEDS ORDERED: POLYETHYLENE GLYCOL 17 GM (MIRALAX) PACK PO ONE (09:30)
[2019-08-31] MEDS ORDERED: BISACODYL 10 MG SUPP (DULCOLAX) PR PRN (09:30)
[2019-08-31] MEDS ORDERED: SENNA W/DOCUSATE (SENOKOT S) TABLET PO ONE (09:30)
--- NOTE | 2019-08-31 11:25 | Occupational Ther Daily Note ---
OT Current Status-Daily Note Subjective Pt laying in bed at start of session, agreeable to OT tx with focus on ADLs. Pt reported she is tired today and doesn't think she will be able to do much. Mental Status/Objective Attachments: Oxygen ADL-Treatment Therapy Code Descriptions/Definitions Functional [place] Measure: 0=Not Assessed/NA 4=Minimal Assistance 1=Total Assistance 5=Supervision or Setup 2=Maximal Assistance 6=Modified [place] 3=Moderate Assistance 7=Complete IndependenceSCALE: Activities may be completed with or without assistive devices. 0-Pssmvaatit-wstnzko completes the activity by him/herself with no assistance from a helper. 5-Set-up or Clean-up Assistance-helper sets up or cleans up; patient completes activity. [place] assists only prior to or following the activity. 4-Supervision or Touching Assistance-helper provides verbal cues and/or touching/steadying and/or contact guard assistance as patient completes activity. Assistance may be provided throughout the activity or intermittently. 3-Partial/Moderate Assistance-helper does LESS THAN HALF the effort. [place] lifts, holds or supports trunk or limbs, but provides less than half the effort. 2-Substantial/Maximal Assistance-helper does MORE THAN HALF the effort. [place] lifts or holds trunk or limbs and provides more than half the effort. 9-Hcudefhux-jaelha does ALL the effort. Patient does none of the effort to complete the activity. Or, the assistance of 2 or more helpers is required for the patient to complete the activity. If activity was not attempted, code reason: 7-Patient Refused. 9-Not Applicable-not attempted and the patient did not perform the activity before the current illness, exacerbation or injury. 10-Not Attempted due to Environmental Limitations-(lack of equipment, weather restraints, etc.). 88-Not Attempted due to Medical Conditions or Safety Concerns. Oral Hygiene (QC): 7 Upper Body Dressing (QC): 2 (Pt able to don/doff hospital gown off of RUE, required assistand with LUE and tying/untying gown.) Other Treatment Pt laying in bed throughout session. Pt was able to use wet washcloth to wash her face. Pt required total assistance washing BUE and underarms. Pt declined further spongebath at this time. Pt then agreed to changing her hospital gown. OT handed pt a hairbrush, she was able to brush the right side of her head but required assistance brushing the top, back and left side. Pt stated she was tired at this time. Post OT session, pt laying in bed, call light in reach and all needs met. Education OT Patient Education: Correct positioning, Energy conservation, Modified ADL techniques, Progress toward Goal/Update tx plan, Purpose of tx/functional activities Teaching Recipient: Patient Teaching Methods: Demonstration, Discussion Response to Teaching: Verbalize Understanding, Return Demonstration OT Head Of Marketing Goals Head Of Marketing Goals Time Frame: Sep 08, 2019 Eating (QC): 6 Oral Hygiene (QC): 6 Toileting Hygiene (QC): 3 Shower/Bathe Self (QC): 3 Upper Body Dressing (QC): 3 Lower Body Dressing (QC): 3 On/Off Footwear (QC): 3 Additional Goals: 1-Demonstrate ADL Tasks, 2-Verbalize Understanding, 3- ImproveStrength/[place] 1=Demonstrate adherence to instructed precautions during ADL tasks. 2=Patient will verbalize/demonstrate understanding of assistive devices/modifications for ADL. 3=Patient will improve strength/tolerance for activity to enable patient to perform ADL's. OT Education/Plan Problem List/Assessment Assessment: Decreased Activ Tolerance, Decreased UE Strength, Impaired Bed Mobility, Impaired I ADL's, Impaired Self-Care Skills, Restricted Funct UE ROM Discharge Recommendations Plan/Recommendations: Continue POC Treatment Plan/Plan of Care Treatment,Training & Education: Yes Patient would benefit from OT for education, treatment and training to promote independence in ADL's, mobility, safety and/or upper extremity function for ADL's. Plan of Care: ADL Retraining, Caregiver Training, Functional Mobility, UE Funct Exercise/Act Treatment Duration: Sep 08, 2019 Frequency: 5 times per week Estimated Hrs Per Day: .25 hour per day Agreement: Yes Rehab Potential: Fair Time/GCodes Start Time: 10:50 Stop Time: 11:00 Total Time Billed (hr/min): 10 Billed Treatment Time 1, ADL CAROLYNN PEÑA OT Aug 31, 2019 11:25 POS
--- NOTE | 2019-08-31 11:32 | Progress Note - Hospitalist ---
[facility] 08/31/19 1132: Subjective HPI/CC On Admission Date Seen by Provider: Aug 31, 2019 Time Seen by Provider: 08:20 Chief complaint: Pneumonia with sepsis History of present illness: This is an 83-year-old white female clinic patient of [facility] in [place] who presented from the skilled nursing with hypoxia and fever. Patient was found to have a pneumonia. She also had a UTI. 3 weeks ago she had a pacemaker placed. Patient was shown to have volume overload so cardiology and pulmonology were both consulted. Patient reports a cough that is productive of yellow sputum. She is asking for her hydrocodone she takes at the skilled nursing. She is trying to use her incentive spirometer. Subjective/Events-last exam Patient states she is feeling better Congestion in her chest and head are clearing Still coughing up green/yellow sputum but has decreased Patient has not had a bowel movemen UA culture showed E. Coli Sputum showed usual upper respiratory dimitrios Free T4 was 1.15 Review of Systems General: No Chills, No Other (fevers) HEENT: No Eye Pain, No Ear Pain Pulmonary: No Dyspnea; Cough Cardiovascular: Edema; No: Chest Pain Gastrointestinal: No: Nausea, Vomiting, Abdominal Pain Focused Exam Lactate Level 08/29/19 08:45: Lactic Acid Level 1.56 Objective Exam Vital Signs Vital Signs Date Time Temp Pulse Resp B/P (MAP) Pulse Ox O2 Delivery O2 Flow Rate FiO2 08/31/19 09:44 94 Nasal Cannula 2.00 08/31/19 08:00 36.8 81 18 104/67 (79) 08/29/19 21:00 95 Capillary Refill : Less Than 3 Seconds General Appearance: No Apparent Distress, WD/WN HEENT: Normal ENT Inspection Neck: Normal Inspection, Non Tender, Supple Respiratory: Chest Non Tender, No Accessory Muscle Use, No Respiratory Distress, Decreased Breath Sounds (Congestion but improved), Other (Breathing effort had improved) Cardiovascular: Regular Rate, Rhythm, No Murmur, Normal Peripheral Pulses (2/4 radial bilaterally), Other (2+ edema bilaterally) Gastrointestinal: No Distended Extremity: Non Tender, No Calf Tenderness Neurologic/Psychiatric: Alert, Oriented x3, Normal Mood/Affect Skin: Normal Color, Warm/Dry Results/Procedures Lab Laboratory Tests 08/31/19 08:00 Patient resulted labs reviewed. Assessment/Plan Assessment and Plan Assess & Plan/Chief Complaint Pneumonia UTI CHF Sinus infection Hyperthyroidism, thyroiditis, or overly medicated for hypothyroidism Cough Antibiotics Patient continues to show improvement and will evaluate for in-patient rehab Miralax and senna for constipation Clinical Quality Measures DVT/VTE Risk/Contraindication: Risk Factor Score Per Nursin RFS Level Per Nursing on Admit: 4+=Very High ALLISON GALLARDO DO 08/31/19 2218: Subjective Subjective/Events-last exam Cough is still present but improved. Pt appears to be very fragile. Bowels need to move so I will order meds. E. Coli on UTI. Maintained on Zosyn. Appreciate cardiology and pulmonology. Review of Systems Pulmonary: Cough Objective Exam General Appearance: No Apparent Distress, WD/WN, Chronically ill Respiratory: No Accessory Muscle Use, No Respiratory Distress, Crackles, Decreased Breath Sounds (Congestion but improved), Wheezing Cardiovascular: Regular Rate, Rhythm Assessment/Plan Assessment and Plan Assess & Plan/Chief Complaint IRF? Diagnosis/Problems Diagnosis/Problems (1) Pneumonia involving right lung Status: Acute Qualifiers: Qualified Codes: J18.9 - Pneumonia, unspecified organism (2) Acute heart failure Status: Acute Qualifiers: Qualified Codes: I50.9 - Heart failure, unspecified (3) Urinary tract infection Status: Acute Qualifiers: Qualified Codes: N30.00 - Acute cystitis without hematuria (4) Hyperkalemia (5) Sepsis (6) Pacemaker (7) Advanced age (8) Elevated brain natriuretic peptide (BNP) level (9) Presbycusis of both ears Supervisory-Addendum Brief Verification & Attestation Participated in pt care: history, MDM, physical Personally performed: exam, history, MDM, supervision of care Care discussed with: Medical Student Procedures: n/a Results interpretation: Verified all documentation Verification and Attestation of Medical Student E/M Service A medical student performed and documented this service in my presence. I reviewed and verified all information documented by the medical student and made modifications to such information, when appropriate. I personally performed the physical exam and medical decision making. Allison Gallardo, Aug 31, 2019,22:18 [facility]ALENA [facility] MED STUD Aug 31, 2019 11:32 ALLISON PEDRO DO Aug 31, 2019 22:18 POS
--- NOTE | 2019-08-31 14:53 | Physical Therapy Daily Note ---
PT Daily Note-Current Subjective Patient agrees to therapy to transfer off toilet and to chair in room. Patient reports abdominal discomfort and difficulty with BM and hemorrhoids. Patient not on O2 initially. Mental Status Patient Orientation: Normal For Age Attachments: [place] Catheter, IV Transfers SCALE: Activities may be completed with or without assistive devices. 8-Lephjodhme-rbkpfzk completes the activity by him/herself with no assistance from a helper. 5-Set-up or Clean-up Assistance-helper sets up or cleans up; patient completes activity. [place] assists only prior to or following the activity. 4-Supervision or Touching Assistance-helper provides verbal cues and/or touching/steadying and/or contact guard assistance as patient completes activity. Assistance may be provided throughout the activity or intermittently. 3-Partial/Moderate Assistance-helper does LESS THAN HALF the effort. [place] lifts, holds or supports trunk or limbs, but provides less than half the effort. 2-Substantial/Maximal Assistance-helper does MORE THAN HALF the effort. [place] lifts or holds trunk or limbs and provides more than half the effort. 0-Tkaymelkd-ljqbtz does ALL the effort. Patient does none of the effort to complete the activity. Or, the assistance of 2 or more helpers is required for the patient to complete the activity. If activity was not attempted, code reason: 7-Patient Refused. 9-Not Applicable-not attempted and the patient did not perform the activity before the current illness, exacerbation or injury. 10-Not Attempted due to Environmental Limitations-(lack of equipment, weather restraints, etc.). 88-Not Attempted due to Medical Conditions or Safety Concerns. Sit to Stand (QC): 3 Chair/Gbs-rs-Lqwyl Xfer(QC): 3 Toilet Transfer (QC): 3 modA; cannot use LUE to push/pull Weight Bearing Right Lower Extremity: Right Weight Bearing/Tolerated Left Lower Extremity: Left Weight Bearing/Tolerated Gait Training Does the Patient Walk?: Yes Distance: 15' Walk 10 feet (QC): 3 Gait Assistive Device: FWW Kyphotic, hunched over walker; Assessment Patient required ModA to stand from toilet with use of FWW d/t limitations in push/pull on LUE. Ambulated 15' within room with FWW demonstrating hunched over posture and increased respiratory rate. Patient seated in recliner with reports of SOB on RA and O2 sats at 97%. Nasal cannula replaced at 2L per patient request. Patient left in recliner with legs elevated, needs met, and nursing present. PT Dye Operator Goals Dye Operator Goals PT Dye Operator Goals Time Frame: Sep 06, 2019 Roll Left & Right (QC): 6 Sit to Lying (QC): 3 (Marylou) Lying-Sitting on Side/Bed(QC): 3 (Marylou) Sit to Stand (QC): 3 (Marylou) Chair/Ckd-nr-Hsfmi Xfer(QC): 3 (Marylou) Toilet Transfer (QC): 88 Car Transfer (QC): 88 Does the Patient Walk: Yes Walk 10 feet (QC): 3 (modA) Walk 50ft with 2 Turns (QC): 88 Walk 150 ft (QC): 88 Walking 10ft on Uneven Surface: 88 1 Step (curb) (QC): 9 4 Steps (QC): 9 12 Steps (QC): 9 Picking up an Object (QC): 88 Does the Pt use WC or Scooter?: No Type: N/A Type: N/A PT Plan Treatment/Plan Treatment Plan: Continue Plan of Care Treatment Plan: Bed Mobility, Concurrent Therapy, Education, Functional Activity [place], Functional Strength, Gait, Safety, Therapeutic Exercise, Transfers Treatment Duration: Sep 06, 2019 Frequency: 6 times per week Estimated Hrs Per Day: .25 hour per day Patient and/or Family Agrees t: Yes Time/GCodes Time In: 1407 Time Out: 1417 Total Billed Treatment Time: 10 Total Billed Treatment 1 visit FA 10min DANILO JIMENEZ PT Aug 31, 2019 14:52 POS
[2019-08-31 16:00] VITALS: BP 94/68
--- NOTE | 2019-08-31 16:03 | NUR ---
IRF Evaluation Order received to evaluate patient for the ARU. Chart review complete and findings discussed with Dr. Vo - patient denied admission, at this time. This denial is associated with patient's inability to tolerate intensive therapies. Currently, patient is transferring and ambulating (15ft, FWW) with moderate assistance, as well as requiring maximum assistance with UE dressing. SWB Coordinator notified as a slower pace to recovery may be an appropriate alternative. Will continue to follow. Thank you for this referral.
--- NOTE | 2019-08-31 17:57 | Progress Note - Cardiology ---
Cardiology SOAP Progress Note Subjective: Feels better, but cough is still persistent No cp or palp or syncope Shortness of breath better Objective: I&O/Vital Signs 08/31/19 08/31/19 08/31/19 08/31/19 08:00 09:00 09:44 16:00 Temp 36.8 36.8 Pulse 81 82 Resp 18 18 B/P (MAP) 104/67 (79) 94/68 (77) Pulse Ox 95 94 95 O2 Delivery Nasal Cannula Nasal Cannula Nasal Cannula Nasal Cannula O2 Flow Rate 2.00 2.00 2.00 2.00 08/31/19 00:00 Intake Total 1560 ml Output Total 850 ml Balance 710 ml Constitutional: AAO x 3, well-developed, well-nourished Respiratory: No accessory muscle use, No respiratory distress; chest expansion is symmetric, chest is bilaterally symmetric, crackles (coarse breath sounds) Cardiovascular: irregularly irregular; No JVD; S1 and S2 Gastrointestional: No tender; soft, round, audible bowel sounds Extremities: other (mild to mod bilat LE swelling) Neurologic/Psychiatric: grossly intact (moves extremities) Skin: normal color, warm/dry Results/Procedures: Labs Laboratory Tests 08/31/19 08:00: Sodium Level 140, Potassium Level 3.7, Chloride Level 99, Carbon Dioxide Level 27, Anion Gap 14, Blood Urea Nitrogen 17, Creatinine 0.84, Estimat Glomerular Filtration Rate > 60, BUN/Creatinine Ratio 20, Glucose Level 110H, Calcium Level 9.0, Magnesium Level 2.0 Microbiology 08/29/19 Blood Culture - Preliminary, Resulted No growth 08/29/19 Gram Stain - Final, Complete 08/29/19 Sputum Culture - Final, Complete Usual upper respiratory dimitrios 08/29/19 Urine Culture - Final, Complete Escherichia coli Laboratory Tests 08/30/19 03:50 08/31/19 08:00 A/P: Assessment: Progressive shortness of breath, multifactorial (see below) Probable pneumonia Acute on chronic diastolic CHF - clinically improved Echo of 08-29-19: LVEF 60-65%. LA severely dilated. Mild to mod calcified annulus with mild MR. Bioprosthetic AoV present. Mild to mod TR. 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 Fitzgerald H/O PPM implant on Aug 09, 2019 at [facility] by Dr. Fitzgerald H/O colon cancer with colectomy - details unknown H/O frequent UTI's TSH 0.06 on 08-30-19 - indicative of hyperthyroidism - Medical Services Plan: Have not been able to get records from [facility] Cardiac status clinically stable Continue current medication regimen Change IV Lasix to oral Treatment of pneumonia per Hospitalist and Pulmonary services Ok to d/c from cardiac standpoint. 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
[2019-08-31] MEDS: SENNA W/DOCUSATE (SENOKOT S) TABLET PO SCH (20:03)
[2019-08-31] MEDS ORDERED: SIMvastatin 10 MG (ZOCOR) TAB PO SCH (21:00)
[2019-08-31] MEDS ORDERED: POLYETHYLENE GLYCOL 17 GM (MIRALAX) PACK PO SCH (21:00)
[2019-08-31 23:50] VITALS: BP 115/68
[2019-09-01] MEDS: PIPERACILLIN/TAZO 4.5 GM/NS 100 ML IV SCH ×4 (01:57→09:42)
[2019-09-01] MEDS: FUROSEMIDE 40 MG/4 ML INJ (LASIX) IV SCH (06:01)
[2019-09-01] MEDS: HYDROcodone/APAP 10 MG/325 MG (LORTAB) TAB PO PRN (06:01)
[2019-09-01] MEDS: CATHETER FLUSH 10 ML SYR IV SCH ×2 (06:01→13:17)
[2019-09-01 06:22] LABS: BASOPHILS % (AUTO) 1 % (0-10); EOSINOPHILS # (AUTO) 0.2 10^3/uL (0.0-0.3); EOSINOPHILS % (AUTO) 3 % (0-10); HEMATOCRIT 38 % (35-52); LYMPHOCYTES # (AUTO) 2.1 X 10^3 (1.0-4.0); LYMPHOCYTES % (AUTO) 30 % (12-44); MEAN CORPUSCULAR HEMOGLOBIN 28 PG (25-34); MEAN CORPUSCULAR HGB CONC 32 G/DL (32-36); MEAN CORPUSCULAR VOLUME 90 FL (80-99); MEAN PLATELET VOLUME 12.5 FL (7.4-10.4); MONOCYTES # (AUTO) 0.6 X 10^3 (0.0-1.0); MONOCYTES % (AUTO) 9 % (0-12); NEUTROPHILS # (AUTO) 3.9 X 10^3 (1.8-7.8); NEUTROPHILS % (AUTO) 57 % (42-75); PLATELET COUNT 156 10^3/uL (130-400); RED CELL DISTRIBUTION WIDTH 14.8 % (10.0-14.5); WHITE BLOOD COUNT 6.8 10^3/uL (4.3-11.0)
[2019-09-01 06:32] LABS: ALANINE AMINOTRANSFERASE < 6 U/L (0-55); ALBUMIN 3.5 GM/DL (3.2-4.5); ALKALINE PHOSPHATASE 90 U/L (40-136); BILIRUBIN,TOTAL 0.9 MG/DL (0.1-1.0); BUN/CREATININE RATIO 22; CALCIUM 9.3 MG/DL (8.5-10.1); CARBON DIOXIDE 28 MMOL/L (21-32); CHLORIDE 98 MMOL/L (98-107); CREATININE SERUM 0.91 MG/DL (0.60-1.30); GFR ESTIMATED 59; GLUCOSE 94 MG/DL (70-105); POTASSIUM 3.6 MMOL/L (3.6-5.0); SODIUM 138 MMOL/L (135-145); TOTAL PROTEIN 6.7 GM/DL (6.4-8.2)
--- NOTE | 2019-09-01 06:32 | Pulmonary Progress Note ---
Subjective Time Seen by a Provider: 13:34 Sepsis Event Evaluation Height, Weight, BMI Height: '" Weight: lbs. oz. kg; 45.18 BMI Method: Focused Exam Lactate Level 08/29/19 08:45: Lactic Acid Level 1.56 Exam Exam Vital Signs Date Time Temp Pulse Resp B/P (MAP) Pulse Ox O2 Delivery O2 Flow Rate FiO2 08/31/19 23:50 36.6 86 18 115/68 (84) 97 Nasal Cannula 2.00 08/31/19 21:00 Nasal Cannula 2.00 08/31/19 18:53 95 Nasal Cannula 2.00 08/31/19 16:00 36.8 82 18 94/68 (77) 95 Nasal Cannula 2.00 08/31/19 09:44 94 Nasal Cannula 2.00 08/31/19 09:00 Nasal Cannula 2.00 08/31/19 08:00 36.8 81 18 104/67 (79) 95 Nasal Cannula 2.00 I & O 09/01/19 07:00 Intake Total 2090 ml Output Total 2350 ml Balance -260 ml Height & Weight Height: '" Weight: lbs. oz. kg; 45.18 BMI Method: General Appearance: No Apparent Distress, WD/WN, Chronically ill HEENT: Normal ENT Inspection Neck: Normal Inspection, Non Tender, Supple Respiratory: No Accessory Muscle Use, No Respiratory Distress, Crackles, Decreased Breath Sounds (Congestion but improved), Wheezing Cardiovascular: Regular Rate, Rhythm Capillary Refill: Less Than 3 Seconds Gastrointestinal: normal bowel sounds, non tender, soft, no organomegaly, no pulsatile mass Extremity: Non Tender, No Calf Tenderness Neurologic/Psychiatric: Alert, Oriented x3, Normal Mood/Affect Skin: Normal Color, Warm/Dry Lymphatic: No Adenopathy Results Lab Laboratory Tests 08/31/19 08:00 09/01/19 05:50 Assessment/Plan Assessment/Plan SOB doubt PNA -- Now improved - Lasix -Repeat CXR pending -Yates cultures -Currently on Zosyn UTI -Zosyn started on 08/29 -Consider d/c vs changing to Keflex Pulmonary edema -Continue Lasix Anemia -Monitor S/p recent pacemaker placement JOSE G HANEY DO Sep 01, 2019 06:32
[2019-09-01 08:00] VITALS: BP 124/57
[2019-09-01] MEDS: lisINopril 5 MG (PRINIVIL) TABLET PO SCH (08:06)
[2019-09-01] MEDS: APIXABAN 5 MG (ELIQUIS) TABLET PO SCH (08:07)
[2019-09-01] MEDS: SENNA W/DOCUSATE (SENOKOT S) TABLET PO SCH (08:07)
[2019-09-01] MEDS ORDERED: FLU QUADRIvalent (5+ YOA) 2019-2020 (AFLURIA) 0.5 ML IM ONE (08:08)
[2019-09-01] MEDS: ASPIRIN E.C. 81 MG (ECOTRIN) TAB PO SCH (08:08)
[2019-09-01] MEDS: RT-ALBUTEROL/IPRATROPIUM 3 ML (DUONEB) VIAL INH SCH ×3 (08:21→15:31)
--- NOTE | 2019-09-01 08:29 | NUR ---
prior to a.m medications pulse was 80 b/p 124/57
--- NOTE | 2019-09-01 08:45 | Progress Note - Cardiology ---
Cardiology SOAP Progress Note Objective: I&O/Vital Signs Constitutional: AAO x 3, well-developed, well-nourished Respiratory: No accessory muscle use, No respiratory distress; chest expansion is symmetric, chest is bilaterally symmetric, crackles (coarse breath sounds) Cardiovascular: irregularly irregular; No JVD; S1 and S2 Gastrointestional: No tender; soft, round, audible bowel sounds Extremities: other (mild to mod bilat LE swelling) Neurologic/Psychiatric: grossly intact (moves extremities) Skin: normal color, warm/dry Results/Procedures: Labs Microbiology 08/29/19 Blood Culture - Final, Complete No growth 08/29/19 Gram Stain - Final, Complete 08/29/19 Sputum Culture - Final, Complete Usual upper respiratory dimitrios 08/29/19 Urine Culture - Final, Complete Escherichia coli A/P: Assessment: Progressive shortness of breath, multifactorial (see below) - improved Probable pneumonia Acute on chronic diastolic CHF - clinically improved Echo of 08-29-19: LVEF 60-65%. LA severely dilated. Mild to mod calcified annulus with mild MR. Bioprosthetic AoV present. Mild to mod TR. RVSP 41 mmHg H/O chronic A-fib OAC with Eliquis Cardiac cath of Aug 03, 2019 at [facility] by Dr. Adler showed mild nonobstructive dz. Sever aortic stenosis. 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 Fitzgerald and Dr. 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 Fitzgerald - to be managed by cardiology services at [facility] Sleep apnea - CPAP tx H/O colon cancer with colectomy - details unknown H/O frequent UTI's TSH 0.06 on 08-30-19 - indicative of hyperthyroidism - Medical Services Plan: Records received from [facility] (limited) reviewed Cardiac status clinically stable Continue current medication regimen Treatment of pneumonia per Hospitalist and Pulmonary services Ok to d/c from cardiac standpoint. She states she will follow closely with her relay engineer in [place] WILBERT BAINS Sep 01, 2019 08:45 POS
[2019-09-01] MEDS ORDERED: FURO-124 PO (08:48)
--- NOTE | 2019-09-01 09:40 | Physical Therapy Daily Note ---
PT Daily Note-Current Subjective Patient agrees to PT at this time. Reports she has no pain because she was recently given pain medication and breathing treatment. Patient is adamant about not being able to lift/push/pull with L arm. Pain Numeric Pain Scale: 0-No Pain Location: No Pain Reported Mental Status Patient Orientation: Normal For Age Transfers SCALE: Activities may be completed with or without assistive devices. 8-Bpfehjlhfv-qhwbufs completes the activity by him/herself with no assistance from a helper. 5-Set-up or Clean-up Assistance-helper sets up or cleans up; patient completes activity. [place] assists only prior to or following the activity. 4-Supervision or Touching Assistance-helper provides verbal cues and/or touching/steadying and/or contact guard assistance as patient completes activity. Assistance may be provided throughout the activity or intermittently. 3-Partial/Moderate Assistance-helper does LESS THAN HALF the effort. [place] l ifts, holds or supports trunk or limbs, but provides less than half the effort. 2-Substantial/Maximal Assistance-helper does MORE THAN HALF the effort. [place] lifts or holds trunk or limbs and provides more than half the effort. 1-Aooydvnln-eacnpv does ALL the effort. Patient does none of the effort to complete the activity. Or, the assistance of 2 or more helpers is required for t he patient to complete the activity. If activity was not attempted, code reason: 7-Patient Refused. 9-Not Applicable-not attempted and the patient did not perform the activity before the current illness, exacerbation or injury. 10-Not Attempted due to Environmental Limitations-(lack of equipment, weather restraints, etc.). 88-Not Attempted due to Medical Conditions or Safety Concerns. Sit to Stand (QC): 3 Weight Bearing Right Lower Extremity: Right Weight Bearing/Tolerated Left Lower Extremity: Left Weight Bearing/Tolerated Gait Training Does the Patient Walk?: Yes Distance: 30' Walk 10 feet (QC): 3 Gait Assistive Device: FWW Kyphotic posture, does not maneuver walker with L arm, Assessment Patient stood from chair with Marylou d/t lack of use of L arm to assist with standing. Ambulated 30' with FWW; took gasping breaths during ambulation but stated she was not SOB. Reminded to take slow, deep breaths while walking. Patient returned to chair with legs elevated and all needs met. PT Longterm Goals Longterm Goals PT Colorer Goals Time Frame: Sep 06, 2019 Roll Left & Right (QC): 6 Sit to Lying (QC): 3 (Marylou) Lying-Sitting on Side/Bed(QC): 3 (Marylou) Sit to Stand (QC): 3 (Marylou) Chair/Gqa-bk-Sawuj Xfer(QC): 3 (Marylou) Toilet Transfer (QC): 88 Car Transfer (QC): 88 Does the Patient Walk: Yes Walk 10 feet (QC): 3 (modA) Walk 50ft with 2 Turns (QC): 88 Walk 150 ft (QC): 88 Walking 10ft on Uneven Surface: 88 1 Step (curb) (QC): 9 4 Steps (QC): 9 12 Steps (QC): 9 Picking up an Object (QC): 88 Does the Pt use WC or Scooter?: No Type: N/A Type: N/A PT Plan Treatment/Plan Treatment Plan: Continue Plan of Care Treatment Plan: Bed Mobility, Concurrent Therapy, Education, Functional A ctivity [place], Functional Strength, Gait, Safety, Therapeutic Exercise, Transfers Treatment Duration: Sep 06, 2019 Frequency: 6 times per week Estimated Hrs Per Day: .25 hour per day Patient and/or Family Agrees t: Yes Time/GCodes Time In: 828 Time Out: 840 Total Billed Treatment Time: 12 Total Billed Treatment 1 visit GT 12min DANILO JIMENEZ PT Sep 01, 2019 09:40 POS
--- NOTE | 2019-09-01 10:16 | Occupational Ther Daily Note ---
OT Current Status-Daily Note Subjective Pt seated in recliner, declined needing to use the restroom at this time. Pt agreeable to OT tx with focus on ADLs. Pain Numeric Pain Scale: 0-No Pain Mental Status/Objective Attachments: IV, Oxygen ADL-Treatment Therapy Code Descriptions/Definitions Functional [place] Measure: 0=Not Assessed/NA 4=Minimal Assistance 1=Total Assistance 5=Supervision or Setup 2=Maximal Assistance 6=Modified [place] 3=Moderate Assistance 7=Complete IndependenceSCALE: Activities may be completed with or without assistive devices. 9-Gepizutiio-lzhdwrj completes the activity by him/herself with no assistance from a helper. 5-Set-up or Clean-up Assistance-helper sets up or cleans up; patient completes activity. [place] assists only prior to or following the activity. 4-Supervision or Touching Assistance-helper provides verbal cues and/or touching/steadying and/or contact guard assistance as patient completes activity. Assistance may be provided throughout the activity or intermittently. 3-Partial/Moderate Assistance-helper does LESS THAN HALF the effort. [place] lifts, holds or supports trunk or limbs, but provides less than half the effort. 2-Substantial/Maximal Assistance-helper does MORE THAN HALF the effort. [place] lifts or holds trunk or limbs and provides more than half the effort. 4-Dsnlifquo-iijdjt does ALL the effort. Patient does none of the effort to complete the activity. Or, the assistance of 2 or more helpers is required for the patient to complete the activity. If activity was not attempted, code reason: 7-Patient Refused. 9-Not Applicable-not attempted and the patient did not perform the activity before the current illness, exacerbation or injury. 10-Not Attempted due to Environmental Limitations-(lack of equipment, weather restraints, etc.). 88-Not Attempted due to Medical Conditions or Safety Concerns. Footwear: 1 (pt required total assistance with donning/doffing BLE socks) Other Treatment Pt seated upright in recliner at start of session. She declined needing to use the restroom but agreed to a sponge bath focused on BLE since she had washed her upper body yesterday. As OT gathered ADL supplies for tx, nursing started an IV with pt. OT then handed pt warm wet wipe and pt was able to wash her face. Pt attempted to wash BLE but was unsuccessful with task. Pt was dependent with lower body sponge bath. Pt declined further sponge bath, stating she was tired and thought that was enough for today. Post OT session, pt seated upright in recliner with feet elevated, call light in reach and all needs met. Education OT Patient Education: Correct positioning, Energy conservation, Modified ADL techniques, Progress toward Goal/Update tx plan, Purpose of tx/functional activities Teaching Recipient: Patient Teaching Methods: Discussion Response to Teaching: Verbalize Understanding OT Barrel Leveler Goals Barrel Leveler Goals Time Frame: Sep 08, 2019 Eating (QC): 6 Oral Hygiene (QC): 6 Toileting Hygiene (QC): 3 Shower/Bathe Self (QC): 3 Upper Body Dressing (QC): 3 Lower Body Dressing (QC): 3 On/Off Footwear (QC): 3 Additional Goals: 1-Demonstrate ADL Tasks, 2-Verbalize Understanding, 3- ImproveStrength/[place]et 1=Demonstrate adherence to instructed precautions during ADL tasks. 2=Patient will verbalize/demonstrate understanding of assistive devices/modifications for ADL. 3=Patient will improve strength/tolerance for activity to enable patient to perform ADL's. OT Education/Plan Problem List/Assessment Assessment: Decreased Activ Tolerance, Decreased UE Strength, Dependent Transfers, Impaired I ADL's, Impaired Self-Care Skills, Restricted Funct UE ROM Discharge Recommendations Plan/Recommendations: Continue POC Treatment Plan/Plan of Care Treatment,Training & Education: Yes Patient would benefit from OT for education, treatment and training to promote independence in ADL's, mobility, safety and/or upper extremity function for ADL's. Plan of Care: ADL Retraining, Caregiver Training, Functional Mobility, UE Funct Exercise/Act Treatment Duration: Sep 08, 2019 Frequency: 5 times per week Estimated Hrs Per Day: .25 hour per day Agreement: Yes Rehab Potential: Fair Time/GCodes Start Time: 09:37 Stop Time: 09:47 Total Time Billed (hr/min): 10 Billed Treatment Time 1, ADL CAROLYNN PEÑA OT Sep 01, 2019 10:16 POS
--- NOTE | 2019-09-01 11:34 | Progress Note - Cardiology ---
Cardiology SOAP Progress Note Subjective: Less shortness of breath and less cough compared to time of admission, but symptoms not resolved No cp or palp or syncope Objective: I&O/Vital Signs 08/31/19 09/01/19 09/01/19 09/01/19 23:50 08:00 08:21 09:00 Temp 36.6 36.5 Pulse 86 80 Resp 18 20 B/P (MAP) 115/68 (84) 124/57 (79) Pulse Ox 97 94 96 96 O2 Delivery Nasal Cannula Nasal Cannula Nasal Cannula Nasal Cannula O2 Flow Rate 2.00 2.00 2.00 2.00 FiO2 95 09/01/19 00:00 Intake Total 1650 ml Output Total 2350 ml Balance -700 ml Constitutional: AAO x 3, well-developed, well-nourished Respiratory: No accessory muscle use, No respiratory distress; chest expansion is symmetric, chest is bilaterally symmetric, crackles (coarse breath sounds) Cardiovascular: irregularly irregular; No JVD; S1 and S2 Gastrointestional: No tender; soft, round, audible bowel sounds Extremities: other (mild to mod bilat LE swelling) Neurologic/Psychiatric: grossly intact (moves extremities) Skin: normal color, warm/dry Results/Procedures: Labs Laboratory Tests 09/01/19 05:50: White Blood Count 6.8, Red Blood Count 4.22L, Hemoglobin 12.0, Hematocrit 38, Mean Corpuscular Volume 90, Mean Corpuscular Hemoglobin 28, Mean Corpuscular Hemoglobin Concent 32, Red Cell Distribution Width 14.8H, Platelet Count 156, Mean Platelet Volume 12.5H, Neutrophils (%) (Auto) 57, Lymphocytes (%) (Auto) 30, Monocytes (%) (Auto) 9, Eosinophils (%) (Auto) 3, Basophils (%) (Auto) 1, Neutrophils # (Auto) 3.9, Lymphocytes # (Auto) 2.1, Monocytes # (Auto) 0.6, Eosinophils # (Auto) 0.2, Basophils # (Auto) 0.0, Sodium Level 138, Potassium Level 3.6, Chloride Level 98, Carbon Dioxide Level 28, Anion Gap 12, Blood Urea Nitrogen 20H, Creatinine 0.91, Estimat Glomerular Filtration Rate 59, BUN/Creatinine Ratio 22, Glucose Level 94, Calcium Level 9.3, Corrected Calcium 9.7, Total Bilirubin 0.9, Aspartate Amino Transf (AST/SGOT) 9, Alanine Aminotransferase (ALT/SGPT) < 6, Alkaline Phosphatase 90, Total Protein 6.7, Albumin 3.5 Microbiology 08/29/19 Blood Culture - Preliminary, Resulted No growth 08/29/19 Gram Stain - Final, Complete 08/29/19 Sputum Culture - Final, Complete Usual upper respiratory dimitrios 08/29/19 Urine Culture - Final, Complete Escherichia coli A/P: Assessment: Progressive shortness of breath, multifactorial (see below) - improved Probable pneumonia Acute on chronic diastolic CHF - clinically improved Echo of 08-29-19: LVEF 60-65%. LA severely dilated. Mild to mod calcified annulus with mild MR. Bioprosthetic AoV present. Mild to mod TR. RVSP 41 mmHg H/O chronic A-fib OAC with Eliquis Cardiac cath of Aug 03, 2019 at [facility] by [address] Adler showed mild nonobstructive dz. Sever aortic stenosis. 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 Fitzgerald and Dr. 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 Fitzgerald - to be managed by cardiology services at [facility] Sleep apnea - CPAP tx H/O colon cancer with colectomy - details unknown H/O frequent UTI's TSH 0.06 on 08-30-19 - indicative of hyperthyroidism - Medical Services Plan: Cardiac status clinically stable Continue current medication regimen Treatment of pneumonia per Hospitalist and Pulmonary services Dr Gunderson covering our service over the weekend Ok to d/c from cardiac standpoint. She states she will follow closely with her cake press operator in [place] WAN YBARRA MD FACP FAC CCDS Sep 01, 2019 11:34 POS
--- NOTE | 2019-09-01 11:53 | NUR ---
Swing Bed Note: Qualifies for swing bed for continued need multiple skilled interventions. Continues to need IV abx (Pneumonia et UTI) with continued need for O2 monitoring et weaning (Acute on Chronic CHF). Patient will change to oral diuretics today. She will also continue with Physical et Occupational therapies to increase strength et endurance from weakness r/t (Pneumonia, UTI, et Acute on Chronic CHF exacerbation). Patient's ultimate goal is to return home at her prior level of independent functioning. Thank you for this referral! Addendum: 09/01/19 at 1238 by ERIKA LOGAN RN Doctor has rounded on Rima et feels that she is ready for discharge to halfway facility today. Contacted Idalia at [facility] to let her know of POC. She will work on arranging transport. I will print a return packet et faxed finalized discharge orders to them once they are placed.
[2019-09-01] MEDS ORDERED: AMOX-358 PO (12:46)
--- NOTE | 2019-09-01 12:49 | Discharge Inst-Skilled Nursing ---
Discharge Inst-Skilled NF Reconcile Patient Problems Problems Reviewed?: Yes Chief Complaint Chief complaint: Pneumonia with sepsis History of present illness: This is an 83-year-old white female clinic patient of [facility] in [place] who presented from the [place] [facility] with hypoxia and fever. Patient was found to have a pneumonia. She also had a UTI. 3 weeks ago she had a pacemaker placed. Patient was shown to have volume ove rload so cardiology and pulmonology were both consulted. Patient reports a cough that is productive of yellow sputum. She is asking for her hydrocodone she takes at the [place] [facility]. She is trying to use her incentive spirometer. Patient Instructions Patient Problems: Pneumonia UTI Goal: [place] Consult/Follow Up/Orders Follow Up Appt.: PCP 1 week Skilled NF Admit to: Certification (SNF) I certify that SNF services are required to be given on an inpatient basis because of the above named patient's need for retirement care on a continuing basis for the conditions(s) for which he/she was receiving inpatient hospital services prior to his/her transfer to the SNF. Retirement Facility Order: Nursing Services, [place]-Evaluate & Treat, Physical Therapy-Evaluate & Treat Oxygen Delivery Method: Nasal Cannula Resuscitation Status: Full Code New & Resume Previous Orders New Medications: Amoxicillin/Potassium Clav (Augmentin 875-125 Tablet) 1 Each Tablet 1 EACH PO BID, #10 TAB Furosemide (Lasix) 40 Mg Tablet 40 MG PO BID, #60 TAB Continued Medications: Acetaminophen (Tylenol) 325 Mg Tablet 650 MG PO Q4H PRN for PAIN-MILD (1-4), TAB Apixaban (Eliquis) 5 Mg Tablet 5 MG PO BID, TAB Aspirin (Aspirin EC) 81 Mg Tablet.dr 81 MG PO DAILY, TAB Hydrocodone Bitartrate (Zohydro ER) 10 Mg Cap.er.12h 10 MG PO Q12H, CAP Hydrocodone/Acetaminophen (Hydrocodon-Acetaminophn 10-325) 1 Each Tablet 1 TAB PO BID PRN for PAIN-MODERATE (5-7), TAB Latanoprost (Latanoprost) 2.5 Ml Drops 1 DROP OU HS, EA Lisinopril (Lisinopril) 2.5 Mg Tablet 2.5 MG PO DAILY, TAB Metformin HCl (Metformin HCl) 500 Mg Tablet 500 MG PO BID, TAB Omeprazole (Omeprazole) 40 Mg Capsule. 40 MG PO DAILY, CAP Potassium Chloride (Potassium Chloride) 10 Meq Tablet.er 10 MEQ PO BID, TAB Pravastatin Sodium (Pravastatin Sodium) 10 Mg Tablet 10 MG PO DAILY, TAB Sennosides/Docusate Sodium (Senna-S Tablet) 1 Each Tablet 1 TAB PO BID, TAB Sertraline HCl (Sertraline HCl) 50 Mg Tablet 50 MG PO DAILY, TAB Discontinued Medications: Furosemide (Furosemide) 20 Mg Tablet 20 MG PO BID, TAB Allison Vo Sep 01, 2019 12:49 ALLISON VO DO Sep 01, 2019 12:49 POS
--- NOTE | 2019-09-01 13:15 | NUR ---
REPORT GIVEN TO MICHAEL NURSE WHO WILL ASSUME CARE OF THIS PATIENT WHEN SHE ARRIVES BACK TO [facility]. THIS RN WILL CONT TO MONITOR THIS PATIENT THROUGHOUT THE REMAINDER OF THIS SHIFT.
--- NOTE | 2019-09-01 14:56 | Discharge Summary ---
[facility] 09/01/19 1456: Diagnosis/Chief Complaint Date of Admission Aug 29, 2019 at 10:57 Date of Discharge Discharge Date: Sep 01, 2019 Discharge Time: 13:59 Admission Diagnosis Assessment: Sepsis Pneumonia UTI Recent pacemaker placement Hyperkalemia Volume overload Elevated BNP Advanced age Presbycusis Chronic pain Plan: Appreciate cardiology and pulmonology consultations ICU IV antibiotics Monitor closely Primary Care Carlos Smith MD Discharge Diagnosis UTI resolving Pneumonia resolving (1) Pneumonia involving right lung Status: Acute (2) Acute heart failure Status: Acute (3) Urinary tract infection Status: Acute (4) Hyperkalemia (5) Sepsis (6) Pacemaker (7) Advanced age (8) Elevated brain natriuretic peptide (BNP) level (9) Presbycusis of both ears Discharge Summary Procedures/Consulations Cardiology 08/29 Dr. Simon Pulmonology 08/29 Dr. Back Discharge Physical Exam Allergies: Coded Allergies: Sulfa (Sulfonamide Antibiotics) (Verified Allergy, Unknown, 08/29/19) capsaicin (Verified Allergy, Unknown, 08/29/19) ciprofloxacin (Verified Allergy, Unknown, 08/29/19) codeine (Verified Allergy, Unknown, 08/29/19) simvastatin (Verified Allergy, Unknown, 08/29/19) Vitals & I&Os Vital Signs Date Time Temp Pulse Resp B/P (MAP) Pulse Ox O2 Delivery O2 Flow Rate FiO2 09/01/19 09:00 96 Nasal Cannula 2.00 95 09/01/19 08:00 36.5 80 20 124/57 (79) General Appearance: No Apparent Distress, WD/WN, Other (Sleeping in chair) Respiratory: Chest Non Tender, Lungs Clear, Normal Breath Sounds, No Accessory Muscle Use, No Respiratory Distress Cardiovascular: Regular Rate, Rhythm, Normal Peripheral Pulses (2/4 bilaterally), Other (LE edema 2+) Extremity: No Calf Tenderness, Pedal Edema Skin: Normal Color, Warm/Dry Neurologic/Psychiatric: Alert, Oriented x3 Hospital Course Was the Problem List Reviewed?: Yes Patient was admitted on 08/29 and discharged on 09/01. Patient was admitted for Acute heart failure, Pneumonia, and UTI. Patient has a past medical history of pacemaker, afib, valvular heart disease, GERD. Patient was provided care by Dr. Simon, Dr. Back, and Dr. Vo. X-ray showed Cardiomegaly and central vascular congestion with some right perihilar infiltrate. Prosthetic valve noted. UA cultured E.coli resistant to ampicillin, ciprofloxacin, and levofloxacin. TSH was decreased but free t4 showed level of 1.15. Patient appeared much better on 09/01 and infections were resolving. Will place patient on home antibiotics and will resume rehab [facility] [place]. Patient is to follow medications outlined in Discharge instructions. Patient is to follow-up as outline in discharge instructions. The following information is only a summary of the patient admission while at [facility] and is not all inclusive. Please review entire chart for more info. Labs (last 24 hrs) Laboratory Tests 09/01/19 05:50: White Blood Count 6.8, Red Blood Count 4.22L, Hemoglobin 12.0, Hematocrit 38, Mean Corpuscular Volume 90, Mean Corpuscular Hemoglobin 28, Mean Corpuscular Hemoglobin Concent 32, Red Cell Distribution Width 14.8H, Platelet Count 156, Mean Platelet Volume 12.5H, Neutrophils (%) (Auto) 57, Lymphocytes (%) (Auto) 3 0, Monocytes (%) (Auto) 9, Eosinophils (%) (Auto) 3, Basophils (%) (Auto) 1, Neutrophils # (Auto) 3.9, Lymphocytes # (Auto) 2.1, Monocytes # (Auto) 0.6, Eosinophils # (Auto) 0.2, Basophils # (Auto) 0.0, Sodium Level 138, Potassium Level 3.6, Chloride Level 98, Carbon Dioxide Level 28, Anion Gap 12, Blood Urea Nitrogen 20H, Creatinine 0.91, Estimat Glomerular Filtration Rate 59, BUN/Creatinine Ratio 22, Glucose Level 94, Calcium Level 9.3, Corrected Calcium 9.7, Total Bilirubin 0.9, Aspartate Amino Transf (AST/SGOT) 9, Alanine Aminotransferase (ALT/SGPT) < 6, Alkaline Phosphatase 90, Total Protein 6.7, Albumin 3.5 Microbiology 08/29/19 Blood Culture - Preliminary, Resulted No growth 08/29/19 Gram Stain - Final, Complete 08/29/19 Sputum Culture - Final, Complete Usual upper respiratory dimitrios 08/29/19 Urine Culture - Final, Complete Escherichia coli Patient resulted labs reviewed. Discussion & Recommendations Discharge Planning: >30 minutes discharge planning Discharge Home Medications: Active Scripts Active Augmentin 875-125 Tablet (Amoxicillin/Potassium Clav) 1 Each Tablet 1 Each PO BID Lasix (Furosemide) 40 Mg Tablet 40 Mg PO BID Reported Sertraline HCl 50 Mg Tablet 50 Mg PO DAILY Zohydro ER (Hydrocodone Bitartrate) 10 Mg Cap.er.12h 10 Mg PO Q12H Tylenol (Acetaminophen) 325 Mg Tablet 650 Mg PO Q4H PRN Senna-S Tablet (Sennosides/Docusate Sodium) 1 Each Tablet 1 Tab PO BID Pravastatin Sodium 10 Mg Tablet 10 Mg PO DAILY Potassium Chloride 10 Meq Tablet.er 10 Meq PO BID Omeprazole 40 Mg Capsule.dr 40 Mg PO DAILY Hydrocodon-Acetaminophn 10-325 (Hydrocodone/Acetaminophen) 1 Each Tablet 1 Tab PO BID PRN Metformin HCl 500 Mg Tablet 500 Mg PO BID Lisinopril 2.5 Mg Tablet 2.5 Mg PO DAILY Latanoprost 2.5 Ml Drops 1 Drop OU HS Eliquis (Apixaban) 5 Mg Tablet 5 Mg PO BID Aspirin EC (Aspirin) 81 Mg Tablet.dr 81 Mg PO DAILY Instructions to patient/family Please see electronic discharge instructions given to patient. Clinical Quality Measures DVT/VTE Risk/Contraindication: Risk Factor Score Per Nursin RFS Level Per Nursing on Admit: 4+=Very High [facility]liseo [place] 09/02/19 1004: Discharge Summary Discharge Physical Exam Allergies: Coded Allergies: Sulfa (Sulfonamide Antibiotics) (Verified Allergy, Unknown, 08/29/19) capsaicin (Verified Allergy, Unknown, 08/29/19) ciprofloxacin (Verified Allergy, Unknown, 08/29/19) codeine (Verified Allergy, Unknown, 08/29/19) simvastatin (Verified Allergy, Unknown, 08/29/19) General Appearance: No Apparent Distress, WD/WN Respiratory: Lungs Clear Cardiovascular: Regular Rate, Rhythm Neurologic/Psychiatric: Alert, Oriented x3, No Motor/Sensory Deficits, Normal Mood/Affect Hospital Course Was the Problem List Reviewed?: Yes Hospital course: Pt had an uneventful hospital course, started out with ICU for SOB and chest pain with a recent pacemaker placement which in turn required treatment for pneumonia and UTI with broad-spectrum Zosyn with pulmonology and cardiology consultation. Pt required a couple of days of aggressive treatment and at time of discharge, Pt had no crackles and wheezing on exam and was feeling good enough to go back to [facility] in [place] to resume her therapy, and to be monitored closely in order to regain enough function to go home. Discussion & Recommendations Discharge Planning: <30 minutes discharge planning Supervisory-Addendum Brief Verification & Attestation Participated in pt care: history, MDM, physical Personally performed: exam, history, MDM, supervision of care Care discussed with: Medical Student Procedures: n/a Results interpretation: Verified all documentation Verification and Attestation of Medical Student E/M Service A medical student performed and documented this service in my presence. I reviewed and verified all information documented by the medical student and made modifications to such information, when appropriate. I personally performed the physical exam and medical decision making. Allison Vo, Sep 02, 2019,10:03 Problem Qualifiers (1) Pneumonia involving right lung: Pneumonia type: due to unspecified organism Lung location: unspecified part of lung Qualified Codes: J18.9 - Pneumonia, unspecified organism (2) Acute heart failure: Heart failure type: unspecified Qualified Codes: I50.9 - Heart failure, unspecified (3) Urinary tract infection: Urinary tract infection type: acute cystitis Hematuria presence: without hematuria Qualified Codes: N30.00 - Acute cystitis without hematuria [facility] Sep 01, 2019 14:56 ALLISON PEDRO DO Sep 02, 2019 10:04 POS
[2019-09-01 16:00] VITALS: BP 120/59
--- NOTE | 2019-09-01 16:14 | NUR ---
CM FINALIZED DISCHARGE PLAN: Patient is returning to [facility] today for continued Physical et Occupational therapies. F/U phone call placed to Idalia at [facility] et she reports that they have been in communication with the patient's primary care nurse Angie MYERS about the brain picker time of 4 p.m. She denies any further needs from me at this time.
--- OUTSIDE RECORDS SUMMARY | 2019-09-23 03:40 | XMS REPORT | Continuity of Care Document ---
Author Organization Unknown Address Unknown Phone Unavailable Allergies Active Description Code Type Severity Reaction Onset Reported/Identified Relationship to Patient Clinical Status Yes capsaicin [id number] Drug Allergy Unknown N/A 08/29/2019 Yes ciprofloxacin [id number] Jose g Allergy Unknown N/A 08/29/2019 Yes codeine [id number] Drug Allergy Unknown N/A 08/29/2019 Yes simvastatin [id number] Drug Aller gy Unknown N/A 08/29/2019 Yes Sulfa (Sulfonamide Antibiotics) [id number] Drug Allergy Unknown N/A 019 Medications There is no data. Problems Date Dx Coded Attending Type Code Diagnosis Diagnosed By 09/01/2019 JAMESON GALLARDO DO Ot A41.9 SEPSIS, UNSPECIFIED ORGANISM 09/01/2019 SAMI LA JAMESON Ot B96.20 UNSP ESCHERICHIA COLI THE CAUSE OF DI 09/01/2019 VIN GALLARDO DOI Ot D64.9 ANEMIA, UNSPECIFIED 09/01/2019 SAMI LA JAMESON Ot E03.9 HYPOTHYROIDISM, UNSPECIFIED 09/01/2019 SAMI LA JAMESON Ot E11.9 TYPE 2 DIABETES MELLITUS WITHOUT COMPLIC 09/01/2019 SAMI LA JAMESON Ot E78.00 PURE HYPERCHOLESTEROLEMIA, UNSPECIFIED 09/01/2019 SAMI LA JAMESON Ot E78.5 HYPERLIPIDEMIA, UNSPECIFIED 09/01/2019 SAMI LA JAMESON Ot G47.30 SLEEP APNEA, UNSPECIFIED 09/01/2019 SAMI LA JAMESON Ot G89.29 OTHER CHRONIC PAIN 09/01/2019 SAMI LA JAMESON Ot H91.10 PRESBYCUSIS, UNSPECIFIED EAR 09/01/2019 SAMI LA JAMESON Ot I11.0 HYPERTENSIVE HEART DISEASE WITH HEART FA 09/01/2019 SAMI LA JAMESON Ot I48.20 CHRONIC ATRIAL FIBRILLATION, UNSPECIFIED 09/01/2019 SAMI LA JAMESON Ot I50.33 ACUTE ON CHRONIC DIASTOLIC (CONGESTIVE) 09/01/2019 VIN GALLARDO DOI Ot J18.9 PNEUMONIA, UNSPECIFIED ORGANISM 09/01/2019 GALLARDOJAMESON LARSON DO Ot K21.9 GASTRO-ESOPHAGEAL REFLUX DISEASE WITHOUT 09/01/2019 JAMESON GALLARDO DO Ot N39.0 URINARY TRACT INFECTION, SITE NOT SPECIF 09/01/2019 JAMESON GALLARDO DO Ot Z23 ENCOUNTER FOR IMMUNIZATION 09/01/2019 JAMESON GALLARDO DO Ot Z79.82 STRADDLE BUG (CURRENT) USE OF ASPIRIN 09/01/2019 JAMESON GALLARDO DO Ot Z79.84 STRADDLE BUG (CURRENT) USE OF ORAL HYPOGLYC 09/01/2019 JAMESON GALLARDO DO Ot Z85.03 8 PERSONAL HISTORY OF MALIGNANT NEOPLASM O 09/01/2019 JAMESON GALLARDO DO Ot Z90.49 ACQUIRED ABSENCE OF OTHER SPECIFIED PART 09/01/2019 JAMESON GALLARDO DO Ot Z95.0 PRESENCE OF CARDIAC PACEMAKER 09/01/2019 JAMESON GALLARDO DO Ot Z95.3 PRESENCE OF XENOGENIC HEART VALVE Procedures There is no data. Results Test Result Range Comprehensive metabolic panel - 08/29/19 08:45 Serum or plasma sodium measurement (moles/volume) 140 mmol/L 135-145 Serum or plasma potassium measurement (moles/volume) 5.2 mmol/L 3.6-5.0 Serum or plasma chloride measurement (moles/volume) 101 mmol/L 98-107 Carbon dioxide 28 mmol/L 21-32 Serum or plasma anion gap determination (moles/volume) 11 mmol/L 5-14 Serum or plasma urea nitrogen measurement (mass/volume ) 14 mg/dL 7-18 Serum or plasma creatinine measurement (mass/volume) 0.62 mg/dL 0.60-1.30 Serum or plasma urea nitrogen/creatinine mass ratio 23 NRG Serum or plasma creatinine measurement w ith calculation of estimated glomerular filtration rate > NRG Serum or plasma glucose measurement (mass/volume) 91 mg/dL 70-105 Serum or plasma calcium measurement (mass/volume) 9.2 mg/dL 8.5-10.1 Serum or plasma total bilirubin measurement (mass/volu me) 0.6 mg/dL 0.1-1.0 Serum or plasma alkaline phosphatase rajesh surement (enzymatic activity/volume) 105 U/L 40-136 Serum or plasma aspartate aminotransfera se measurement (enzymatic activity/volume) 23 U/L 5-34 Serum or plasma alanine aminotransferase measurement (enzymatic activity/volume) 7 U/L 0-55 Serum or plasma protein measurement (mass/volume) 6.9 g/dL 6.4-8.2 Serum or plasma albumin measurement (mass/volume) 3.4 g/dL 3.2-4.5 CALCIUM CORRECTED 9.7 mg/dL 8.5-10.1 Complete blood count (CBC) with automate d white blood cell (WBC) differential - 08/29/19 08:45 Blood leukocytes automated count (number/volume) 8.8 10*3/uL 4.3-11.0 Blood erythrocytes automated count (number/volume) 3.95 10*6/uL 4.35-5.85 Venous blood hemoglobin measurement (mass/volume) 11.3 g/dL 11.5-16.0 Blood hematocrit (volume fraction) 36 % 35-52 Automated erythrocyte mean corpuscular volume 91 [ foz_us] 80-99 Automated erythrocyte mean corpuscular h emoglobin (mass per erythrocyte) 29 pg 25-34 Automated erythrocyte mean corpuscular h emoglobin concentration measurement (mass/volume) 32 g/dL 32-36 Automated erythrocyte distribution width ratio 14. 9 % 10.0- 14.5 Automated blood platelet count (count/volume) 179 10*3/uL 130-400 Automated blood platelet mean volume measurement 12.4 [foz_us] 7.4-10.4 Automated blood neutrophils/100 leukocytes 70 % 42-75 Automated blood lymphocytes/100 leukocytes 23 % 12-44 Blood monocytes/100 leukocytes 5 % 0-12 Automated blood eosinophils/100 leukocytes 1 % 0-10 Automated blood basophils/100 leukocytes 1 % 0-10 Blood neutrophils automated count (number/volume) 6.1 10*3 1.8-7.8 Blood lymphocytes automated count (number/volume) 2.0 10*3 1.0-4.0 Blood monocytes automated count (number/volume) 0. 5 10*3 0.0-1.0 Automated eosinophil count 0.1 10*3/uL 0 .0-0.3 Automated blood basophil count (count/volume) 0.1 10*3/uL 0.0-0.1 Blood lactic acid measurement (moles/vol ume) - 08/29/19 08:45 Blood lactic acid measurement (moles/volume) 1.56 mmol/L 0.50-2.00 PT panel in platelet poor plasma by coag ulation assay - 08/29/19 08:45 Prothrombin time (PT) in platelet poor plasma by coagu lation assay 15.6 s 12.2-14.7 INR in platelet poor plasma or blood by coagulation as say 1.2 0.8-1.4 Activated partial thromboplastin time (a PTT) in platelet poor plasma bycoagulation assay - 08/29/19 08:45 Activated partial thromboplastin time (a PTT) in platelet poor plasma bycoagulation assay 28 s 24-35 PROBNP FS - 08/29/19 08:45 PROBNP FS 1568.0 pg/mL <75.0 Bacterial blood culture - 08/29/19 08:45 Bacterial blood culture NG NRG Bacterial blood culture - 08/29/19 09:22 Bacterial blood culture NG NRG Complete urinalysis with reflex to cultu re - 08/29/19 09:45 Urine color determination DARK YELLOW N RG Urine clarity determination CLOUDY NR G Urine pH measurement by test strip 7.0 5-9 Specific gravity of urine by test strip 1.015 1.016-1.022 Urine protein assay by test strip, semi-quantitative NEGATIVE NEGATIVE Urine glucose detection by automated test strip NE GATIVE NEGATIVE Erythrocytes detection in urine sediment by light micr oscopy NEGATIVE NEGATIVE Urine ketones detection by automated test strip NE GATIVE NEGATIVE Urine nitrite detection by test strip NEGATIVE NEGATIVE Urine total bilirubin detection by test strip NEGA TIVE NEGATIVE Urine urobilinogen measurement by automated test strip (mass/volume) 0.2 mg/dL < = 1.0 Urine leukocyte esterase detection by dipstick TRA CE NEGATIVE Automated urine sediment erythrocyte cou nt by microscopy (number/high power field) [HPF] NRG Automated urine sediment leukocyte count by microscopy (number/high power field) [HPF] NRG Bacteria detection in urine sediment by light microsco py LARGE NRG Squamous epithelial cells detection in u rine sediment by light microscopy 5-10 NRG Crystals detection in urine sediment by light microsco py NONE NRG Casts detection in urine sediment by light microscopy NONE NRG Mucus detection in urine sediment by light microscopy NEGATIVE NRG Complete urinalysis with reflex to culture CULTURE PENDING NRG Bacterial urine culture - 08/29/19 09:45 Bacterial urine culture [id number] NRG COLONY COUNT >100,000/ML NR FTX;REPORTABLE SUSCEPTIBILITY REPORTED 08-31-2019, 1213 NRG Dirithromycin susceptibility test by dis k diffusion - 08/29/19 09:45 Gentamicin susceptibility test by minimum inhibitory c oncentration <= NRG Trimethoprim/sulfamethoxazole susceptibi lity test by minimum inhibitoryconcentration <= NRG Levofloxacin susceptibility test by minimum inhibitory concentration > NRG Ampicillin susceptibility test by minimum inhibitory c oncentration > NRG Cefazolin susceptibility test by minimum inhibitory co ncentration 2 NRG Ceftriaxone susceptibility test by minimum inhibitory concentration <= NRG Ciprofloxacin susceptibility test by minimum inhibitor y concentration > NRG Meropenem susceptibility test by minimum inhibitory co ncentration <= NRG Nitrofurantoin susceptibility test by mi nimum inhibitory concentration <= NRG Amoxicillin and clavulanate potassium susc ARA = NRG Sputum Gram stain - 08/29/19 21:10 Sputum Gram stain Mixed Bacterial Nesha NRG Bacterial sputum culture - 08/29/19 21:1 0 QUANTITY OF GROWTH . NRG Bacterial sputum culture USUAL RESP NRG Complete blood count (CBC) with automate d white blood cell (WBC) differential - 08/30/19 03:50 Blood leukocytes automated count (number/volume) 7.7 10*3/uL 4.3-11.0 Blood erythrocytes automated count (number/volume) 3.78 10*6/uL 4.35-5.85 Venous blood hemoglobin measurement (mass/volume) 10.6 g/dL 11.5-16.0 Blood hematocrit (volume fraction) 34 % 35-52 Automated erythrocyte mean corpuscular volume 91 [ foz_us] 80-99 Automated erythrocyte mean corpuscular h emoglobin (mass per erythrocyte) 28 pg 25-34 Automated erythrocyte mean corpuscular h emoglobin concentration measurement (mass/volume) 31 g/dL 32-36 Automated erythrocyte distribution width ratio 14. 9 % 10.0- 14.5 Automated blood platelet count (count/volume) 170 10*3/uL 130-400 Automated blood platelet mean volume measurement 12.3 [foz_us] 7.4-10.4 Automated blood neutrophils/100 leukocytes 68 % 42-75 Automated blood lymphocytes/100 leukocytes 23 % 12-44 Blood monocytes/100 leukocytes 8 % 0-12 Automated blood eosinophils/100 leukocytes 1 % 0-10 Automated blood basophils/100 leukocytes 0 % 0-10 Blood neutrophils automated count (number/volume) 5.2 10*3 1.8-7.8 Blood lymphocytes automated count (number/volume) 1.8 10*3 1.0-4.0 Blood monocytes automated count (number/volume) 0. 6 10*3 0.0-1.0 Automated eosinophil count 0.1 10*3/uL 0 .0-0.3 Automated blood basophil count (count/volume) 0.0 10*3/uL 0.0-0.1 Comprehensive metabolic panel - 08/30/19 03:50 Serum or plasma sodium measurement (moles/volume) 142 mmol/L 135-145 Serum or plasma potassium measurement (moles/volume) 3.6 mmol/L 3.6-5.0 Serum or plasma chloride measurement (moles/volume) 101 mmol/L 98-107 Carbon dioxide 28 mmol/L 21-32 Serum or plasma anion gap determination (moles/volume) 13 mmol/L 5-14 Serum or plasma urea nitrogen measurement (mass/volume ) 13 mg/dL 7-18 Serum or plasma creatinine measurement (mass/volume) 0.76 mg/dL 0.60-1.30 Serum or plasma urea nitrogen/creatinine mass ratio 17 NRG Serum or plasma creatinine measurement w ith calculation of estimated glomerular filtration rate > NRG Serum or plasma glucose measurement (mass/volume) 105 mg/dL 70-105 Serum or plasma calcium measurement (mass/volume) 8.7 mg/dL 8.5-10.1 Serum or plasma total bilirubin measurement (mass/volu me) 0.7 mg/dL 0.1-1.0 Serum or plasma alkaline phosphatase rajesh surement (enzymatic activity/volume) 96 U/L 40-136 Serum or plasma aspartate aminotransfera se measurement (enzymatic activity/volume) 10 U/L 5-34 Serum or plasma alanine aminotransferase measurement (enzymatic activity/volume) < U/L 0-55 Serum or plasma protein measurement (mass/volume) 6.1 g/dL 6.4-8.2 Serum or plasma albumin measurement (mass/volume) 3.2 g/dL 3.2-4.5 CALCIUM CORRECTED 9.3 mg/dL 8.5-10.1 Magnesium - 08/30/19 03:50 Magnesium 1.9 mg/dL 1.6-2.4 THYROID STIMULATING HORMONE - 08/30/19 0 3:50 THYROID STIMULATING HORMONE 0.06 u[iU]/mL 0.35-4.94 Serum or plasma thyroxine (T4) free benjie urement (mass/volume) - 08/30/19 03:50 Serum or plasma thyroxine (T4) free measurement (mass/ volume) 1.15 ng/dL 0.70-1.48 Whole blood basic metabolic panel - 02/12 08:00 Serum or plasma sodium measurement (moles/volume) 140 mmol/L 135-145 Serum or plasma potassium measurement (moles/volume) 3.7 mmol/L 3.6-5.0 Serum or plasma chloride measurement (moles/volume) 99 mmol/L 98-107 Carbon dioxide 27 mmol/L 21-32 Serum or plasma anion gap determination (moles/volume) 14 mmol/L 5-14 Serum or plasma urea nitrogen measurement (mass/volume ) 17 mg/dL 7-18 Serum or plasma creatinine measurement (mass/volume) 0.84 mg/dL 0.60-1.30 Serum or plasma urea nitrogen/creatinine mass ratio 20 NRG Serum or plasma creatinine measurement w ith calculation of estimated glomerular filtration rate > NRG Serum or plasma glucose measurement (mass/volume) 110 mg/dL 70-105 Serum or plasma calcium measurement (mass/volume) 9.0 mg/dL 8.5-10.1 Magnesium - 08/31/19 08:00 Magnesium 2.0 mg/dL 1.6-2.4 Complete blood count (CBC) with automate d white blood cell (WBC) differential - 09/01/19 05:50 Blood leukocytes automated count (number/volume) 6.8 10*3/uL 4.3-11.0 Blood erythrocytes automated count (number/volume) 4.22 10*6/uL 4.35-5.85 Venous blood hemoglobin measurement (mass/volume) 12.0 g/dL 11.5-16.0 Blood hematocrit (volume fraction) 38 % 35-52 Automated erythrocyte mean corpuscular volume 90 [ foz_us] 80-99 Automated erythrocyte mean corpuscular h emoglobin (mass per erythrocyte) 28 pg 25-34 Automated erythrocyte mean corpuscular h emoglobin concentration measurement (mass/volume) 32 g/dL 32-36 Automated erythrocyte distribution width ratio 14. 8 % 10.0- 14.5 Automated blood platelet count (count/volume) 156 10*3/uL 130-400 Automated blood platelet mean volume measurement 12.5 [foz_us] 7.4-10.4 Automated blood neutrophils/100 leukocytes 57 % 42-75 Automated blood lymphocytes/100 leukocytes 30 % 12-44 Blood monocytes/100 leukocytes 9 % 0-12 Automated blood eosinophils/100 leukocytes 3 % 0-10 Automated blood basophils/100 leukocytes 1 % 0-10 Blood neutrophils automated count (number/volume) 3.9 10*3 1.8-7.8 Blood lymphocytes automated count (number/volume) 2.1 10*3 1.0-4.0 Blood monocytes automated count (number/volume) 0. 6 10*3 0.0-1.0 Automated eosinophil count 0.2 10*3/uL 0 .0-0.3 Automated blood basophil count (count/volume) 0.0 10*3/uL 0.0-0.1 Comprehensive metabolic panel - 09/01/19 05:50 Serum or plasma sodium measurement (moles/volume) 138 mmol/L 135-145 Serum or plasma potassium measurement (moles/volume) 3.6 mmol/L 3.6-5.0 Serum or plasma chloride measurement (moles/volume) 98 mmol/L 98-107 Carbon dioxide 28 mmol/L 21-32 Serum or plasma anion gap determination (moles/volume) 12 mmol/L 5-14 Serum or plasma urea nitrogen measurement (mass/volume ) 20 mg/dL 7-18 Serum or plasma creatinine measurement (mass/volume) 0.91 mg/dL 0.60-1.30 Serum or plasma urea nitrogen/creatinine mass ratio 22 NRG Serum or plasma creatinine measurement w ith calculation of estimated glomerular filtration rate 59 NRG Serum or plasma glucose measurement (mass/volume) 94 mg/dL 70-105 Serum or plasma calcium measurement (mass/volume) 9.3 mg/dL 8.5-10.1 Serum or plasma total bilirubin measurement (mass/volu me) 0.9 mg/dL 0.1-1.0 Serum or plasma alkaline phosphatase rajesh surement (enzymatic activity/volume) 90 U/L 40-136 Serum or plasma aspartate aminotransfera se measurement (enzymatic activity/volume) 9 U/L 5-34 Serum or plasma alanine aminotransferase measurement (enzymatic activity/volume) < U/L 0-55 Serum or plasma protein measurement (mass/volume) 6.7 g/dL 6.4-8.2 Serum or plasma albumin measurement (mass/volume) 3.5 g/dL 3.2-4.5 CALCIUM CORRECTED 9.7 mg/dL 8.5-10.1 Encounters ACCT No. Visit Date/Time Discharge Status Pt. Type Provider Facility Loc./Unit Complaint [id number] 09/01/2019 11:46:00 019 23:59:59 CLS Preadmit JAMESON GALLARDO DO [facility] [id number] 08/29/2019 10:57:00 019 16:35:00 DIS Outpatient JAMESON GALLARDO DO [facility] 4TH CHF ACUTE EXACERBATION UTI RML
--- OUTSIDE RECORDS SUMMARY | 2019-09-23 13:26 | XMS REPORT | Continuity of Care Document ---
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 Type Provider Facility Loc./Unit Complaint [id number] 09/01/2019 11:46:00 019 23:59:59 CLS Preadmit JAMESON GALLARDO DO [facility] [id number] 08/29/2019 10:57:00 019 16:35:00 DIS Outpatient JAMESON GALLARDO DO [facility] 4TH CHF ACUTE EXACERBATION UTI RML
== END 2019-09-01 16:35 | DRG 871 ==
LOC: ER FS 07:53 → ICU 10:57 → 4TH 08-30 10:14
PROVIDERS: ADMIT Internal Medicine; ATTEND Internal Medicine
DX: A41.9 Sepsis, unspecified organism (principal); J18.9 Pneumonia, unspecified organism; I50.33 Acute on chronic diastolic (congestive) heart failure; N39.0 Urinary tract infection, site not specified; I48.20 Chronic atrial fibrillation, unspecified; I11.0 Hypertensive heart disease with heart failure; E78.00 Pure hypercholesterolemia, unspecified; K21.9 Gastro-esophageal reflux disease without esophagitis; E11.9 Type 2 diabetes mellitus without complications; E78.5 Hyperlipidemia, unspecified; G89.29 Other chronic pain; H91.10 Presbycusis, unspecified ear; D64.9 Anemia, unspecified; E03.9 Hypothyroidism, unspecified; B96.20 Unspecified Escherichia coli [E. coli] as the cause of diseases classified elsewhere; Z23 Encounter for immunization; G47.30 Sleep apnea, unspecified; Z90.49 Acquired absence of other specified parts of digestive tract; Z85.038 Personal history of other malignant neoplasm of large intestine; Z79.82 Long term (current) use of aspirin; Z79.84 Long term (current) use of oral hypoglycemic drugs; Z95.3 Presence of xenogenic heart valve; Z95.0 Presence of cardiac pacemaker
CPT/HCPCS: 36415; 51702; 71045; 80048; 80053; 81000; 83605; 83735; 83880; 84439; 84443; 85025; 85610; 85730; 87040; 87070; 87077; 87088; 87186; 87205; 93005; 93306; 94640; 94664; 94760; 96374; 96375

== ENCOUNTER → 2020-05-29 | Outpatient (CLI) | payer MEDICARE, MEDICAID ==
[~2020-05-29] MED LIST: ACET325T38 PO; ACHYD1T PO; AMOX-358 PO; APIX5TAB PO; ASPI-983 PO; CATHETER FLUSH 10 ML SYR IV PRN; FURO-124 PO; FURO20TA4 PO; HOLD METFORMIN - RECEIVED CONTRAST 20 ML VIAL IV SCH; HYDR10CA3 PO; IOHEXOL 350 MG/ML 100 ML (OMNIPAQUE 350) VIAL IV ONE; LATA2.5D5 OU; LISI2.5T PO; METF-397 PO; NS 100 ML (IVPB) BAG IV ONE; OMEP40CA27 PO; POTA10TA10 PO; PRAV10TA PO; SENN-109 PO; SERT50TA9 PO
--- NOTE | 2020-05-29 13:26 | Diagnostic Imaging Report ---
INDICATION: Auditory hallucinations. TECHNIQUE: Multiple contiguous axial images were obtained through the brain before and after the administration of intravenous contrast. Auto Exposure Controls were utilized during the CT exam to meet ALARA standards for radiation dose reduction. There is no previous study for comparison. FINDINGS: There are mild diffuse atrophic changes. There are mgiw-ey-qdosruni low-density changes in deep white matter compatible with chronic ischemic change. There is no acute hemorrhage or mass effect or midline shift. The ventricles are normal in size for age. There are no focal parenchymal abnormalities in the brain. Postcontrast images demonstrate no enhancing intracranial lesion. Calvarial windows appear unremarkable. IMPRESSION: Mild atrophic changes and chronic ischemic changes in deep white matter. No acute hemorrhage or mass effect or enhancing intracranial lesion. Dictated by: Dictated on workstation # [id number]
== END ==
LOC: RAD FS 10:55
PROVIDERS: ATTEND Nurse Practitioner
DX: I67.82 Cerebral ischemia (principal); G31.9 Degenerative disease of nervous system, unspecified; R44.0 Auditory hallucinations
CPT/HCPCS: 70470

== ENCOUNTER → 2021-01-30 | Outpatient (CLI) | payer MEDICARE, MEDICAID ==
[~2021-01-30] MED LIST changes: +ASPI-1238 PO; -ASPI-983 PO; -CATHETER FLUSH 10 ML SYR IV PRN; -HOLD METFORMIN - RECEIVED CONTRAST 20 ML VIAL IV SCH; -IOHEXOL 350 MG/ML 100 ML (OMNIPAQUE 350) VIAL IV ONE; -NS 100 ML (IVPB) BAG IV ONE; +SERT-413 PO; -SERT50TA9 PO
--- NOTE | 2021-01-30 12:23 | Diagnostic Imaging Report ---
INDICATION: Bilateral knee pain. COMPARISON: None FINDINGS: Multiple radiographic views of bilateral knees were obtained. There is no acute fracture or dislocation on either side. Osseous structures are intact. There are, however advanced osteoarthritic changes of the bilateral knees. This consists of severe tricompartmental joint space narrowing with sclerotic remodeling to the articular surfaces and osteophyte formations, left greater than right. There is no large joint effusion. No unexpected radiopaque foreign bodies are seen. IMPRESSION: 1. No acute fracture or dislocation of either knee. 2. Advanced osteoarthritic changes of both knees, left greater than right. Dictated by: Dictated on workstation # [id number]
== END ==
LOC: RAD FS 10:08
PROVIDERS: ATTEND Nurse Practitioner
DX: M17.0 Bilateral primary osteoarthritis of knee (principal)

== ENCOUNTER 2021-08-18 10:18 | Emergency (ER) | payer MEDICARE, MEDICAID ==
[~2021-08-18] VITALS: Ht 149.9 cm; Wt 108.9 kg
[~2021-08-18 10:18] MED LIST changes: -LISI2.5T PO; +LISI2.5T13 PO; -OMEP40CA27 PO; +OMEP40CA6 PO
--- NOTE | 2021-08-18 10:57 | Diagnostic Imaging Report ---
INDICATION: Fall with trauma to the head. Pain. TECHNIQUE: Routine non contrast-enhanced axial images were obtained from the skull base to the vertex. Auto Exposure Controls were utilized during the CT exam to meet ALARA standards for radiation dose reduction COMPARISON: 05/29/2020 FINDINGS: The ventricles and cortical sulci are diffusely prominent, compatible with age-related volume loss. There are confluent areas of abnormal, low attenuation in the periventricular white matter. This is consistent with chronic small vessel ischemic changes. There is no midline shift or mass-effect. No acute intra-axial hemorrhage is seen. There are no abnormal areas of increased or decreased density to suggest acute hemorrhage or edema. No extra-axial masses or collections are present. The bony calvarium is intact. The visualized paranasal sinuses are unremarkable. The mastoid air cells are clear. IMPRESSION: 1. No acute intracranial abnormality. No CT evidence of mass, acute infarct or intracranial hemorrhage. 2. Chronic small vessel ischemic changes in the deep white matter. Dictated by: Dictated on workstation # [id number]
--- NOTE | 2021-08-18 11:02 | ED Fall/Injury ---
General Chief Complaint: Trauma-Non Activation Stated Complaint: FALL; HEAD INJ Nursing Triage Note: PT TO ROOM FS01 VIA [facility] WITH C/O FALL AT HOME. PT REPORTS THAT HER KNEE "GAVE OUT" AND SHE FELL HITTING POST HEAD ON SINK. PT DENIES LOC, N/V. PT REPORTS SHE IS TAKING BLOOD THINNERS. Source: patient, EMS History of Present Illness Date Seen by Provider: Aug 18, 2021 Time Seen by Provider: 10:21 Initial Comments 85-year-old female presenting with complaints of her left knee giving out and falling back and hit her head. She denies loss of consciousness. She has no nausea, vomiting, change in vision, drainage from her ears, drainage from her nose, difficulty breathing, neck pain. She states that her bleeding regularly gives out on her and she usually uses a walker at home. She has have some increased lateral pain to the knee that is a little worse than usual. She denies having any chest pain. She was not having any difficulty breathing in the bed. She denies any pain or burning with urination. She denied having any other complaints. Location Injury Occurred: home Occurred: just prior to arrival Severity: mild Injuries/Pain Location: head, lower extremity (left knee) Context: other (left knee buckled and gave out on her) Loss of Consciousness: no loss of consciousness Associated Symptoms (Fall): No Abdominal Pain, No Chest Pain, No Confusion, No Dizziness; Headache (mild occipital); No Lightheadedness, No Muscle Spasms, No Nausea/Vomiting, No Neck Pain, No Ringing in Ears, No Seizures, No Shortness of Air, No Slurred Speech; Trouble Walking (chronic); No Vision Changes Allergies and Home Medications Allergies Coded Allergies: Sulfa (Sulfonamide Antibiotics) (Verified Allergy, Unknown, 08/29/19) capsaicin (Verified Allergy, Unknown, 08/29/19) ciprofloxacin (Verified Allergy, Unknown, 08/29/19) codeine (Verified Allergy, Unknown, 08/29/19) simvastatin (Verified Allergy, Unknown, 08/29/19) Patient Home Medication List Home Medication List Reviewed: Yes Acetaminophen (Tylenol) 325 Mg Tablet, 650 MG PO Q4H PRN for PAIN-MILD (1-4), (Reported) Entered as Reported by: TON CUEVAS on 08/29/19 1526 Amoxicillin/Potassium Clav (Augmentin 875-125 Tablet) 1 Each Tablet, 1 EACH PO BID Prescribed by: JAMESON GALLARDO on 09/01/19 1246 Apixaban (Eliquis) 5 Mg Tablet, 5 MG PO BID, (Reported) Entered as Reported by: TON CUEVAS on 08/29/19 152 Aspirin (Aspirin EC) 81 Mg Tablet.dr, 81 MG PO DAILY, (Reported) Entered as Reported by: TON CUEVAS on 08/29/19 152 Furosemide (Lasix) 40 Mg Tablet, 40 MG PO BID Prescribed by: WILBERT BAINS on 09/01/19 0848 Hydrocodone Bit/Acetaminophen (HYDROcodone/APAP 10/325 TABLET) 1 Each Tablet, 1 TAB PO BID PRN for PAIN-MODERATE (5-7), (Reported) Entered as Reported by: TON CUEVAS on 08/29/19 152 Hydrocodone Bitartrate (Zohydro ER) 10 Mg Cap.er.12h, 10 MG PO Q12H, (Reported) Entered as Reported by: TON CUEVAS on 08/29/19 152 Latanoprost (Latanoprost) 2.5 Ml Drops, 1 DROP OU HS, (Reported) Entered as Reported by: TON CUEVAS on 08/29/19 152 Lisinopril (Lisinopril) 2.5 Mg Tablet, 2.5 MG PO DAILY, (Reported) Entered as Reported by: TON CUEVAS on 08/29/19 152 Metformin HCl (Metformin HCl) 500 Mg Tablet, 500 MG PO BID, (Reported) Entered as Reported by: TON CUEVAS on 08/29/19 152 Omeprazole (Omeprazole) 40 Mg Capsule.dr, 40 MG PO DAILY, (Reported) Entered as Reported by: TON CUEVAS on 08/29/19 152 Potassium Chloride (Potassium Chloride) 10 Meq Tablet.er, 10 MEQ PO BID, (Reported) Entered as Reported by: TON CUEVAS on 08/29/19 152 Pravastatin Sodium (Pravastatin Sodium) 10 Mg Tablet, 10 MG PO DAILY, (Reported) Entered as Reported by: TON CUEVAS on 08/29/19 152 Sennosides/Docusate Sodium (Senna-S Tablet) 1 Each Tablet, 1 TAB PO BID, (Reported) Entered as Reported by: TON CUEVAS on 08/29/19 1526 Sertraline HCl (Sertraline HCl) 50 Mg Tablet, 50 MG PO DAILY, (Reported) Entered as Reported by: TON CUEVAS on 08/29/19 1528 Review of Systems Review of Systems Constitutional: No chills, No dizziness, No fever Eyes: See HPI Ears, Nose, Mouth, Throat: see HPI; denies ear pain, denies ear discharge, denies nose pain, denies nose discharge, denies epistaxis Respiratory: see HPI; No short of breath, No stridor, No wheezing Cardiovascular: No chest pain Gastrointestinal: No nausea, No vomiting Genitourinary: No dysuria Musculoskeletal: No neck pain Skin: no symptoms reported Psychiatric/Neurological: See HPI; Denies Numbness, Denies Paresthesia, Denies Weakness Past Xpyxhca-Llfwug-Wxdlkz Hx Patient Social History Tobacco Use?: No Smoking Status: Never a Smoker Smokeless Tobacco Frequency: Never a User Use of E-Cig and/or Vaping dev: No Use of E-Cig and/or Vaping Manolo: Never a User Substance use?: No Alcohol Use?: No Pt feels they are or have been: No Seasonal Allergies Seasonal Allergies: No Past Medical History Surgeries: Yes Appendectomy, Bowel Surgery, Cardiac, Pacemaker, Valve Replacement Respiratory: No Cardiac: Yes (CHF) Atrial Fibrillation, High Cholesterol, Hypertension, Valvular Heart Disease Neurological: No Genitourinary: No Gastrointestinal: Yes Gastroesophageal Reflux Endocrine: Yes Diabetes, Non-Insulin dep HEENT: No Cancer: Yes Colon Did You Recieve Any Treatments: Yes What Type of Treatment Did You: Surgical Intervention Psychosocial: No Integumentary: No Blood Disorders: No Family Medical History No Pertinent Family Hx Physical Exam Vital Signs Vital Signs - First Documented 08/18/21 08/18/21 10:18 12:56 Temp 36.1 Pulse 92 Resp 16 B/P (MAP) 119/104 (109) Pulse Ox 96 O2 Delivery Room Air Capillary Refill : Less Than 3 Seconds Height, Weight, BMI Height: '" Weight: lbs. oz. kg; 48.00 BMI Method: General Appearance: WD/WN, no apparent distress HEENT: PERRL/EOMI, normal ENT inspection, TMs normal, pharynx normal, other (Negative medina sign, negative raccoon sign, no CSF otorrhea, no CSF rhinorrhe a, no hemotympanums.) Neck: non-tender, full range of motion, supple, normal inspection Cardiovascular: normal peripheral pulses, regular rate, rhythm Respiratory: chest non-tender, lungs clear, normal breath sounds Gastrointestinal: normal bowel sounds, non tender, soft, no pulsatile mass Rectal: deferred Extremities: normal capillary refill, swelling (Chronic bilateral swelling to bilateral legs. Tenderness to the lateral aspect of her left knee. There is no crepitus. She has full range of motion.) Neurologic/Psychiatric: logistics planner II-XII nml as tested, no motor/sensory deficits, alert, oriented x 3 Skin: normal color, warm/dry Erinn Coma Score Best Eye Response: (4) Open Spontaneously Best Verbal Response: (5) Oriented Best Motor Response: (6) Obeys Commands Roundup Total: 15 Progress/Results/Core Measures Results/Orders My Orders Orders - CATRACHITA BARRETT MD Ct Head Wo (08/18/21 10:20) Knee 3 View Left (08/18/21 10:27) Robert Bandage (08/18/21 11:25) Vital Signs/I&O 08/18/21 08/18/21 10:18 12:56 Temp 36.1 Pulse 92 70 Resp 16 16 B/P (MAP) 119/104 (109) 151/86 Pulse Ox 96 O2 Delivery Room Air Room Air Blood Pressure Mean: 109 Progress Progress Note #1: Progress Note Obtain x-ray of the left knee and CT of head. Was patient had no other complaints will defer any other blood work or testing. Progress Note #2: Progress Note No acute fracture seen on the left knee. She has chronic degenerative changes. Will place an Robetr bandage to give some extra support. CT scan of the head did not demonstrate any acute intracranial hemorrhage or skull fracture. Counseled on results and follow-up and return precautions reviewed. After at the patient had been resting in the bed for extended periods of time waiting on her family to come pick her up the granddaughter reported that she was having a lot of coughing. The patient was coughing some after she had gone outside to be taken to the car however the entire time she was here in the emergency department she was not having any cough or difficulty breathing. She did not complain of coughing or have any concerns about her breathing. Patient and granddaughter stated that they would follow-up through the clinic if the coughing and breathing continue to be an issue. Diagnostic Imaging Diagonstic Imaging: CT Plain Films/CT/US/NM/MRI: head Comments NAME: DIDI SALINAS [facility] REC#: [id number] PT STATUS: REG ER : 1935 PHYSICIAN: CATRACHITA BARRETT MD ADMIT DATE: 08/18/21/ER FS Draft Date of Exam:08/18/21 CT HEAD WO INDICATION: Fall with trauma to the head. Pain. TECHNIQUE: Routine non contrast-enhanced axial images were obtained from the skull base to the vertex. Auto Exposure Controls were utilized during the CT exam to meet ALARA standards for radiation dose reduction COMPARISON: 05/29/2020 FINDINGS: The ventricles and cortical sulci are diffusely prominent, compatible with age-related volume loss. There are confluent areas of abnormal, low attenuation in the periventricular white matter. This is consistent with chronic small vessel ischemic changes. There is no midline shift or mass-effect. No acute intra-axial hemorrhage is seen. There are no abnormal areas of increased or decreased density to suggest acute hemorrhage or edema. No extra-axial masses or collections are present. The bony calvarium is intact. The visualized paranasal sinuses are unremarkable. The mastoid air cells are clear. IMPRESSION: 1. No acute intracranial abnormality. No CT evidence of mass, acute infarct or intracranial hemorrhage. 2. Chronic small vessel ischemic changes in the deep white matter. Dictated on workstation # [id number] Dict: 08/18/21 1050 Trans: 08/18/21 1056 [facility] [id number] Interpreted by: GEOFF FRIAS MD Electronically signed by: Reviewed: Reviewed by Me Diagonstic Imaging: Xray Plain Films/CT/US/NM/MRI: knee Comments [facility] [place] [place] NAME: DIDI SALINAS [facility] REC#: [id number] PT STATUS: DEP ER : 1935 PHYSICIAN: CATRACHITA BARRETT MD ADMIT DATE: 08/18/21/ER FS Signed Date of Exam:08/18/21 KNEE 3 VIEW LEFT INDICATION: Fall and left knee pain. TIME OF EXAM: 10:36 AM 3 views of the left knee were obtained. Generous demineralization is noted. There are severe tricompartmental degenerative changes. There is significant joint space narrowing and marginal spurring involving all 3 compartments. No fractures are seen. There is no joint effusion. IMPRESSION: Severe tricompartmental degenerative change. Dictated by: Dictated on workstation # [id number] Dict: 08/18/21 1118 Trans: 08/18/21 1604 [facility] [id number] Interpreted by: JOSE PETERSON MD Electronically signed by: JOSE PETERSON MD 08/18/21 1604 Reviewed: Reviewed by Me Departure Impression Primary Impression: Closed head injury without loss of consciousness Qualified Codes: S09.90XA - Unspecified injury of head, initial encounter Additional Impressions: Contusion of occipital region of scalp Qualified Codes: S00.03XA - Contusion of scalp, initial encounter Fall at home Qualified Codes: W19.XXXA - Unspecified fall, initial encounter; Y92.009 - Unspecified place in unspecified non-institutional (private) residence as the place of occurrence of the external cause Left lateral knee pain Disposition: 01 HOME, SELF-CARE Condition: Stable Departure-Patient Inst. Decision time for Depature: 11:11 Referrals: DWIGHT CHEW (PCP/Family) Primary Care Physician Patient Instructions: Preventing Falls ED, Minor Head Injury, Adult ED, Knee Pain ED Add. Discharge Instructions: Ice 15-20 minutes every few hours as needed to help with pain and swelling to back of head. Try to keep your head elevated at least 30 degress for next few days to limit swelling and pain to back of head. Check with clinic for continued concerns/problems with knee and head. All discharge instructions reviewed with patient and/or family. Voiced understanding. CATRACHITA BARRETT MD Aug 18, 2021 11:02
--- NOTE | 2021-08-18 11:19 | Diagnostic Imaging Report ---
INDICATION: Fall and left knee pain. TIME OF EXAM: 10:36 AM 3 views of the left knee were obtained. Generous demineralization is noted. There are severe tricompartmental degenerative changes. There is significant joint space narrowing and marginal spurring involving all 3 compartments. No fractures are seen. There is no joint effusion. IMPRESSION: Severe tricompartmental degenerative change. Dictated by: Dictated on workstation # [id number]
--- OUTSIDE RECORDS SUMMARY | 2021-08-18 12:14 | XMS REPORT | Clinical Summary ---
Author Author [facility] Organization [facility] Address Unknown Phone Unavailable Care Team Providers Care Assurance Senior Name Role Phone Marge Ashley MD PCP Source Comments Some departments are not documenting in the electronic medical record. If you d o not see the information that you expected, contact Release of Information in [facility] [employer] Information Management department at [phone] for further assistan ce in locating additional records.[facility] Allergies Comments Active Allergy Reactions Severity Noted Date Severe Burning Capsaicin SEE COMMENTS Low 01/04/2018 Increased heart rate Ciprofloxacin SEE COMMENTS Low 01/04/2018 Codeine HEADACHE Low 01/04/2018 Simvastatin MUSCLE PAIN Medium 01/04/2018 Sulfa (Sulfonamide RASH Medium 01/04/2018 Antibiotics) Medications End Date Status Medication Sig Dispensed Refills Start Date Active apixaban (ELIQUIS) 5 mg Take 5 mg by 0 tablet mouth twice daily. Active blood sugar diagnostic Use 1 strip 0 test strip as directed before meals and at bedtime. Active diclofenac(+) (VOLTAREN) Apply 4 g 0 1 % topical gel topically to affected area four times daily. Active diclofenac sodium DR Take 50 mg by 0 (VOLTAREN) 50 mg tablet mouth twice daily. Take with food. Active dicyclomine (BENTYL) 20 Take 20 mg by 0 mg tablet mouth every 6 hours. Active digoxin (LANOXIN) 125 mcg Take 125 mcg 0 tablet by mouth daily. Active diltiazem SR (+) Take 120 mg 0 (CARDIZEM SR) 120 mg by mouth capsule every 12 hours. Active lancets MISC Use 1 each as 0 directed four times daily as needed. Diag: Active furosemide (LASIX) 40 mg Take 40 mg by 0 tablet mouth every morning. Active HYDROcodone/acetaminophen Take 1 tablet 0 (+) (NORCO) 325 mg by mouth tablet every 6 hours as needed for Pain Active latanoprost (XALATAN) Place 1 drop 0 0.005 % ophthalmic into or solution around eye(s) at bedtime daily. Active lisinopril (PRINIVIL, Take 2.5 mg 0 ZESTRIL) 2.5 mg tablet by mouth daily. Active metFORMIN (GLUCOPHAGE) Take 500 mg 0 500 mg tablet by mouth twice daily with meals. Active omeprazole DR(+) Take 40 mg by 0 (PRILOSEC) 40 mg capsule mouth daily before breakfast. Active potassium chloride(+) Take 10 mEq 0 (MICRO-K) 10 mEq capsule by mouth daily. Take with a meal and a full glass of water. Active pravastatin (PRAVACHOL) Take 10 mg by 0 10 mg tablet mouth at bedtime daily. Active sertraline (ZOLOFT) 50 mg Take 50 mg by 0 tablet mouth daily. Active methIMAzole (TAPAZOLE) 5 Take 1 tablet 30 tablet 1 02/22/201 mg tablet by mouth 8 daily. 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 Hyperlipemia Renal insufficiency Chronic atrial fibrillation (HCC) Osteoarthritis Symptomatic bradycardia Fatigue Social History Date Tobacco Use Types Packs/Day Years Used Never Smoker Smokeless Tobacco: Never Used Comments Alcohol Use Standard Drinks/Week No 0 (1 standard drink = 0.6 o z pure alcohol) Sex Assigned at Date Recorded Not on file Last Filed Vital Signs Reading Time Taken Comments Vital Sign 112/53 01/04/2018 1:27 PM CDT Blood Pressure - - Pulse - - Temperature - - Respiratory Rate - - Oxygen Saturation - - Inhaled Oxygen Concentration 90.6 kg (199 lb 11.2 oz) 01/04/2018 1:27 PM CDT Weight 158.5 cm (5' 2.4") 01/04/2018 1:27 PM CDT Height 36.06 01/04/2018 1:27 PM CDT Body Mass Index Plan of Treatment Health Maintenance Due Date Last Done Comments MEDICARE ANNUAL WELLNESS 1935 VISIT DTAP/TDAP VACCINES (1 - 1955 Tdap) PHYSICAL (COMPREHENSIVE) 1955 EXAM SHINGLES RECOMBINANT 1987 VACCINE (1 of 2) OSTEOPOROSIS 2002 SCREENING/MONITORING PNEUMONIA (PPSV23) 2002 VACCINE (1 of 1 - PPSV23) INFLUENZA VACCINE 04/27/2021 07/04/1999 Results Not on filefrom Last 3 Months Insurance Type Payer Benefit Subscriber ID Effective Phone Address Plan / Dates Group Medicare MEDICARE MEDICARE [id number] 2002-P [phone] [address] [place] [address] (Home) [place], [place] [address] Advance Directives Patient [employer] Explanation Type Date Recorded Advance Directive/DPOA Care Teams Start Date End Date Assurance Senior Relationship Specialty 01/05/18 Marge Ashley MD PCP - General Family [address] [facility] Medicine [place], [place] [id number]
[2021-08-18 12:56] VITALS: BP 151/86
== END 2021-08-18 12:56 | disposition home or self-care (01) ==
LOC: EDUNIT# 10:18 → ER FS 10:19
DX: S09.90XA Unspecified injury of head, initial encounter (principal); S00.03XA Contusion of scalp, initial encounter; M25.562 Pain in left knee; I11.0 Hypertensive heart disease with heart failure; I50.9 Heart failure, unspecified; E78.00 Pure hypercholesterolemia, unspecified; E11.9 Type 2 diabetes mellitus without complications; K21.9 Gastro-esophageal reflux disease without esophagitis; I48.91 Unspecified atrial fibrillation; Z79.84 Long term (current) use of oral hypoglycemic drugs; Z79.01 Long term (current) use of anticoagulants; Z79.82 Long term (current) use of aspirin; Z79.899 Other long term (current) drug therapy; W22.8XXA Striking against or struck by other objects, initial encounter; Y92.009 Unspecified place in unspecified non-institutional (private) residence as the place of occurrence of the external cause
CPT/HCPCS: 70450; 73562